=== PATIENT | male | born 1960 | race Caucasian/White ===

== ENCOUNTER → 2017-12-31 | Outpatient (CLI) | payer BC ==
--- NOTE | 2017-12-31 11:54 | RADIOLOGY REPORT (SQ) ---
EXAM DESCRIPTION: U/S THYROID/SFT TISS HD NECK COMPLETED DATE/TIME: 12/31/2017 10:14 am REASON FOR STUDY: R59.0 LOCALIZED ENLARGED LYMPH NODES R59.0 LOCALIZED ENLARGED LYMPH NODES COMPARISON: None. TECHNIQUE: Dynamic and static high-scale images acquired of the thyroid gland. Selected additional c olor/power Doppler images recorded. All images stored to PACS. LIMITATIONS: None. FINDINGS: RIGHT LOBE: Normal size. Heterogeneous echotexture. No cystic or solid masses. LEFT LOBE: Normal size. Heterogeneous echotexture. No cystic or solid masses. ISTHMUS: Normal size. Heterogeneous echotexture. No cystic or solid masses. OTHER: Incidental 9 x 13 mm left submandibular lymph node. IMPRESSION: No thyroid nodule. Small submandibular lymph node. TECHNICAL DOCUMENTATION: JOB ID: [id number] [email or web address]- All Rights Reserved Reading location - IP/workstation name: [email or web address]
== END ==
LOC: RAD 11:44
PROVIDERS: ATTEND Physician Assistant
DX: R59.0 Localized enlarged lymph nodes (principal)
CPT/HCPCS: 76536

== ENCOUNTER 2019-03-21 10:13 | Emergency (ER) | payer BC ==
--- NOTE | 2019-03-21 10:27 | ER Document Report ---
ED Medical Screen (RME) - General Chief Complaint: Leg Swelling Stated Complaint: POSSIBLE BLOOD CLOT Time Seen by Provider: 03/21/19 10:24 Primary Care Provider: RENY BECERRIL PA-C [Primary Care Provider] - Follow up as needed Mode of Arrival: Wheelchair Information source: Patient Notes: 58-year-old male presented to ED for red hot swollen right knee. He just had a hip replacement done on Saturday on the right side. states that the doctor told him to come right to the emergency room and be tested for blood clot. states he had some similar about a year ago after another surgery and it ended up being cellulitis. She states she would like him to be checked for both. Patient is alert oriented respirations regular and unlabored speaking in full sentences. TRAVEL OUTSIDE OF THE [place] IN LAST 30 DAYS: No - Related Data Allergies/Adverse Reactions: No Known Allergies Allergy (Verified 03/21/19 10:13) Past Medical History - Past Medical History Cardiac Medical History: Reports: Hx Hypertension Past Surgical History: Reports: Hx Appendectomy, Hx Orthopedic Surgery - Immunizations Hx Diphtheria, Pertussis, Tetanus Vaccination: Yes Physical Exam - Vital signs Vitals: Temp Pulse Resp BP Pulse Ox 99.6 F 113 H 16 143/69 H 96 03/21/19 10:19 03/21/19 10:19 03/21/19 10:19 03/21/19 10:19 03/21/19 10:19 Course - Vital Signs Vital signs: Temp Pulse Resp BP Pulse Ox 99.6 F 113 H 16 143/69 H 96 03/21/19 10:19 03/21/19 10:19 03/21/19 10:19 03/21/19 10:19 03/21/19 10:19 Doctor's Discharge - Discharge Referrals: RENY BECERRIL PA-C [Primary Care Provider] - Follow up as needed
[2019-03-21 10:56] LABS: ABSOLUTE BASOPHILS # (AUTO) 0.1 10^3/uL (0.0-0.2); ABSOLUTE LYMPHOCYTES (AUTO) 1.6 10^3/uL (0.5-4.7); ABSOLUTE NEUT (AUTO) 8.6 10^3/uL (1.7-8.2); BASOPHILS % (AUTO) 0.6 % (0-2); EOSINOPHILS % (AUTO) 0.4 % (0-6); HEMOGLOBIN 11.9 g/dL (13.5-17.0); LYMPHOCYTES % (AUTO) 14.5 % (13-45); MEAN CORPUSCULAR HEMOGLOBIN 29.8 pg (27.0-33.4); MEAN CORPUSCULAR HGB CONC 33.1 g/dL (32.0-36.0); MEAN CORPUSCULAR VOLUME 90 fl (80-97); MONOCYTES % (AUTO) 8.5 % (3-13); PLATELET COUNT 280 10^3/uL (150-450); RED CELL DISTRIBUTION WIDTH 13.1 % (11.5-14.0); TOTAL CELLS COUNTED % (AUTO) 100 %; WHITE BLOOD COUNT 11.3 10^3/uL (4.0-10.5)
[2019-03-21 11:16] LABS: ALANINE AMINOTRANSFERASE 20 U/L (21-72); ALBUMIN 3.7 g/dL (3.5-5.0); ALKALINE PHOSPHATASE 77 U/L (38-126); ANION GAP 11 (5-19); ASPARTATE AMINO TRANSFERASE 23 U/L (17-59); BILIRUBIN,DIRECT 0.3 mg/dL (0.0-0.4); BILIRUBIN,TOTAL 0.9 mg/dL (0.2-1.3); BLOOD UREA NITROGEN 14 mg/dL (7-20); CALCIUM 9.4 mg/dL (8.4-10.2); CARBON DIOXIDE 28 mmol/L (22-30); CHLORIDE 100 mmol/L (98-107); GLUCOSE 102 mg/dL (75-110); POTASSIUM 4.7 mmol/L (3.6-5.0); SODIUM 138.9 mmol/L (137-145); TOTAL PROTEIN 6.5 g/dL (6.3-8.2)
--- NOTE | 2019-03-21 11:44 | RADIOLOGY REPORT (SQ) ---
EXAM DESCRIPTION: KNEE RIGHT 2 VIEWS COMPLETED DATE/TIME: 03/21/2019 11:34 am REASON FOR STUDY: red hot swollen COMPARISON: None. NUMBER OF VIEWS: Two views. TECHNIQUE: AP and lateral radiographic images acquired of the right knee. LIMITATIONS: None. FINDINGS: MINERALIZATION: Normal. BONES: No acute fracture or dislocation. No worrisome bone lesions. JOINT: No effusion. SOFT TISSUES: No soft tissue swelling. No radio-opaque foreign body. OTHER: Osteoarthritis medial and patellofemoral compartments. IMPRESSION: NO RADIOGRAPHIC EVIDENCE OF ACUTE INJURY. TECHNICAL DOCUMENTATION: JOB ID: [id number]- All Rights Reserved Reading location - IP/workstation name: [email or web address]
--- NOTE | 2019-03-21 11:49 | RADIOLOGY REPORT (SQ) ---
EXAM DESCRIPTION: VENOUS UNILATERAL LOWER COMPLETED DATE/TIME: 03/21/2019 11:39 am REASON FOR STUDY: right leg red swollen painful COMPARISON: None. TECHNIQUE: Dynamic and static high scale and color images acquired of the right leg venous system. S elected spectral images acquired with additional compression and augmentation maneuvers. The contrala teral common femoral vein and saphenofemoral junction were also imaged. Images stored on PACS. LIMITATIONS: None. FINDINGS: COMMON FEMORAL: Normal phasicity, compression and augmentation. No visualized echogenic ma terial on high scale. No defects on color images. FEMORAL: Normal compression and augmentation. No visualized echogenic material on high scale. No defe cts on color images. POPLITEAL: Normal compression, augmentation. No visualized echogenic material on high scale. No defec ts on color images. CALF VESSELS: Normal compression, augmentation. No visualized echogenic material on high scale. No de fects on color images. GSV and SSV: Normal compression, augmentation. No visualized echogenic material on high scale. No def ects on color images. ANY DEEP VENOUS INSUFFICIENCY: Not evaluated. ANY EVIDENCE OF POPLITEAL CYST: No. OTHER: No other significant finding. CONTRALATERAL COMMON FEMORAL VEIN AND SAPHENOFEMORAL JUNCTION: Normal phasicity, compression and augmentation. No visualized echogenic material on high scale. No de fects on color images. IMPRESSION: NO EVIDENCE DVT OR SVT IN THE RIGHT LEG. TECHNICAL DOCUMENTATION: JOB ID: [id number] [employer]- All Rights Reserved Reading location - IP/workstation name: [email or web address]
[2019-03-21] MEDS ORDERED: VANCOMYCIN HCL INJ 1000 MG VIAL IV ONE (12:11)
[2019-03-21] MEDS ORDERED: DIPHENHYDRAMINE HCL 50 MG/ML VIAL IV ONE (12:11)
[2019-03-21] MEDS ORDERED: ONDANSETRON HCL INJ/PF 4 MG/2 ML SDV IV ONE (12:15)
[2019-03-21] MEDS ORDERED: HYDROMORPHONE HCL INJ/PF 2 MG/ML AMPULE IV ONE (12:15)
--- NOTE | 2019-03-21 13:14 | RADIOLOGY REPORT (SQ) ---
EXAM DESCRIPTION: HIP RIGHT AP/LATERAL COMPLETED DATE/TIME: 03/21/2019 12:58 pm REASON FOR STUDY: recent surgery/ cellulitis COMPARISON: None. NUMBER OF VIEWS: Two views. TECHNIQUE: AP pelvis and cross-table lateral view right hip . LIMITATIONS: None. FINDINGS: MINERALIZATION: Normal. RIGHT HIP: Status post right total hip replacement. No periprosthetic fracture. No hardware failure . LEFT HIP: There is degenerative osteophytic change from the superolateral acetabulum on the left and narrowing the left hip joint consistent with degenerative arthritis. PUBIS AND ISCHIUM: No fracture. PELVIS: No fracture. SACRUM: No fracture or dislocation. No worrisome bone lesions. LOWER LUMBAR SPINE: No fracture or dislocation. No worrisome bone lesions. No significant disc disea se. SOFT TISSUES: Mottled appearance of soft tissues anterior to the proximal right femur on cross-table lateral view and AP view. Soft tissue abscess not excluded. OTHER: No other significant finding. IMPRESSION: Degenerative arthritis left hip. Status post total right hip prosthesis There is eviden ce of soft tissue air noted adjacent to the right greater trochanter. The possibility of soft tissue abscess adjacent to the right hip prosthesis cannot be excluded. TECHNICAL DOCUMENTATION: JOB ID: [id number] [employer]- All Rights Reserved Reading location - IP/workstation name: [email or web address]
[2019-03-21] MEDS ORDERED: NORMAL SALINE 1000 ML 1,000 ML IV ONE (13:55)
--- NOTE | 2019-03-21 13:55 | RADIOLOGY REPORT (SQ) ---
EXAM DESCRIPTION: HIP RIGHT AP/LATERAL COMPLETED DATE/TIME: 03/21/2019 1:46 pm REASON FOR STUDY: post op pain redness COMPARISON: Same day radiographs, 03/21/2019 NUMBER OF VIEWS: Two views. TECHNIQUE: AP pelvis and additional frog-leg view of the right hip. LIMITATIONS: None. FINDINGS: MINERALIZATION: Normal. RIGHT HIP: Status post right hip total arthroplasty. LEFT HIP: No fracture or dislocation. No worrisome bone lesions. PUBIS AND ISCHIUM: No fracture. PELVIS: No fracture. SACRUM: No fracture or dislocation. No worrisome bone lesions. LOWER LUMBAR SPINE: No fracture or dislocation. No worrisome bone lesions. No significant disc disea se. SOFT TISSUES: Subcutaneous air lucencies about the anterolateral right hip soft tissues overlying the right greater trochanter. OTHER: No other significant finding. IMPRESSION: Status post right hip total arthroplasty. No fracture or dislocation. Subcutaneous air lucencies about the anterolateral right hip soft tissues overlying the right greater trochanter. The re is no significant interval change compared to radiographs performed 1 hour prior. TECHNICAL DOCUMENTATION: JOB ID: [id number] [employer]- All Rights Reserved Reading location - IP/workstation name: [email or web address]
--- NOTE | 2019-03-21 13:56 | ER Document Report ---
ED General <GULSHAN COLBY - Last Filed: 03/21/19 15:39> - General Mode of Arrival: Wheelchair Information source: Patient, Relative, [facility] Records TRAVEL OUTSIDE OF THE [place] IN LAST 30 DAYS: No - HPI Onset: This morning Onset/Duration: Sudden Quality of pain: Achy, Throbbing Severity: Moderate Pain Level: 2 Associated symptoms: denies: Body/muscle aches, Chills, Fever, Nausea, Vomiting, Shortness of breath Exacerbated by: Movement Relieved by: Denies Similar symptoms previously: No Recently seen / treated by doctor: Yes <ANUPAMA TANNER - Last Filed: 03/22/19 06:23> - General Chief Complaint: Leg Swelling Stated Complaint: POSSIBLE BLOOD CLOT Time Seen by Provider: 03/21/19 10:24 Primary Care Provider: RENY BECERRIL PA-C [NO LOCAL MD] - Follow up as needed Notes: 58-year-old male with hypertension status post total right hip replacement 4 days prior to arrival presents with complaint of right lower extremity swelling, erythema and pain. Patient states that he awoke this morning with diffuse redness of his right lower extremity. He did touch base with his orthopedic surgeon who encouraged him to come to the emergency department for evaluation. Patient denies fever, chills, nausea, vomiting, shortness of breath, palpitations, chest pain. He denies prior history of PE, DVT. (ANUPAMA TANNER) - Related Data Allergies/Adverse Reactions: No Known Allergies Allergy (Verified 03/21/19 10:13) Past Medical History - General Information source: Patient - Social History Smoking Status: Former Smoker Frequency of alcohol use: None Drug Abuse: None Lives with: Spouse/Significant other Family History: Reviewed & Not Pertinent Patient has suicidal ideation: No Patient has homicidal ideation: No - Past Medical History Cardiac Medical History: Reports: Hx Hypertension Renal/ Medical History: Denies: Hx Peritoneal Dialysis Past Surgical History: Reports: Hx Appendectomy, Hx Orthopedic Surgery - Immunizations Hx Diphtheria, Pertussis, Tetanus Vaccination: Yes <ANUPAMA TANNER - Last Filed: 03/22/19 06:23> Review of Systems <ANUPAMA TANNER - Last Filed: 03/22/19 06:23> - Review of Systems Notes: REVIEW OF SYSTEMS: CONSTITUTIONAL : Denies fever, chills, or sweats. Denies recent illness. Denies weight loss, recent hospitalizations. EENT: Denies visual changes, eye pain. Denies sore throat, oral lesions, difficulty swallowing. CARDIOVASCULAR: Denies chest pain. Denies palpitations. Denies lower extremity edema. RESPIRATORY: Denies cough. Denies shortness of breath, wheezing. GASTROINTESTINAL: Denies abdominal pain or distention. Denies nausea, vomiting, or diarrhea. Denies blood in vomitus, stools, or per rectum. Denies black, tarry stools. Denies constipation. GENITOURINARY: Denies difficulty urinating, painful urination, frequency, blood in urine, testicular pain or penile discharge. MUSCULOSKELETAL: Denies back or neck pain or stiffness. Denies joint pain or swelling. SKIN: Denies rash, lesions or sores. HEMATOLOGIC : Denies easy bruising or bleeding. LYMPHATIC: Denies swollen glands. NEUROLOGICAL: Denies confusion or altered mental status. Denies loss of consciousness. Denies dizziness or lightheadedness. Denies headache. Denies weakness or paralysis. Denies problems difficulty with ambulation, slurred speech. Denies sensory loss, numbness, or tingling. Denies seizures. PSYCHIATRIC: Denies anxiety or stress. Denies depression, suicidal ideation, or (ANUPAMA TANNER) Physical Exam <ANUPAMA TANNER - Last Filed: 03/22/19 06:23> - Vital signs Vitals: Temp Pulse Resp BP Pulse Ox 99.6 F 113 H 16 143/69 H 96 03/21/19 10:19 03/21/19 10:19 03/21/19 10:19 03/21/19 10:19 03/21/19 10:19 - Notes Notes: PHYSICAL EXAMINATION: GENERAL: Well-appearing, well-nourished and in no acute distress. HEAD: Atraumatic, normocephalic. EYES: Pupils equal round and reactive to light, extraocular movements intact, sclera anicteric, conjunctiva are normal. ENT: Nares patent, oropharynx clear without exudates. Moist mucous membranes. NECK: Normal range of motion, supple without lymphadenopathy LUNGS: Breath sounds clear to auscultation bilaterally and equal. No wheezes rales or rhonchi. HEART: Regular rate and rhythm without murmurs ABDOMEN: Soft, nontender, nondistended abdomen. No guarding, no rebound. No masses appreciated. Musculoskeletal: Normal range of motion, no pitting or edema. No cyanosis. Right knee-edematous, erythematous, warm. No calf pain with palpation. Right hip -8 cm surgical incision with skin blistering, intact, erythematous. NEUROLOGICAL: Cranial nerves grossly intact. Normal speech, normal gait. Normal sensory, motor exams PSYCH: Normal mood, normal affect. SKIN: Right knee-edematous, erythematous, warm. No calf pain with palpation. Right hip -8 cm surgical incision with skin blistering, intact, erythematous. (ANUPAMA TANNER) Course - Laboratory Result Diagrams: 03/21/19 10:32 03/21/19 10:32 <GULSHAN COLBY - Last Filed: 03/21/19 15:39> - Laboratory Result Diagrams: 03/21/19 10:32 03/21/19 10:32 - Diagnostic Test Radiology reviewed: Image reviewed, Reports reviewed <ANUPAMA TANNER - Last Filed: 03/22/19 06:23> - Re-evaluation Re-evalutation: 03/21/19 15:44 CT scan results were reviewed I did recontact violent stating that they are seen the CT scan patient was given 1 dose of vancomycin will stop this and give the patient a dose of Rocephin patient will be given prescriptions as documented and will be discharged (GULSHAN COLBY) 03/21/19 14:23 Laboratory 03/21/19 03/21/19 10:32 10:32 WBC 11.3 H RBC 4.00 L Hgb 11.9 L Hct 36.0 L MCV 90 MCH 29.8 MCHC 33.1 RDW 13.1 Plt Count 280 Seg Neutrophils % 76.0 Lymphocytes % 14.5 Monocytes % 8.5 Eosinophils % 0.4 Basophils % 0.6 Absolute Neutrophils 8.6 H Absolute Lymphocytes 1.6 Absolute Monocytes 1.0 Absolute Eosinophils 0.0 Absolute Basophils 0.1 Sodium 138.9 Potassium 4.7 Chloride 100 Carbon Dioxide 28 Anion Gap 11 BUN 14 Creatinine 0.55 Est GFR ( Amer) > 60 Est GFR (Non-Af Amer) > 60 Glucose 102 Uric Acid 4.0 Calcium 9.4 Total Bilirubin 0.9 Direct Bilirubin 0.3 Neonat Total Bilirubin Not Reportable Neonat Direct Bilirubin Not Reportable Neonat Indirect Bili Not Reportable AST 23 ALT 20 L Alkaline Phosphatase 77 Total Protein 6.5 Albumin 3.7 Venous Doppler Study 03/21/19 10:24 IMPRESSION: NO EVIDENCE DVT OR SVT IN THE RIGHT LEG. Knee X-Ray 03/21/19 10:26 IMPRESSION: NO RADIOGRAPHIC EVIDENCE OF ACUTE INJURY. Hip/Pelvis X-Ray 03/21/19 13:17 IMPRESSION: Status post right hip total arthroplasty. No fracture or dislocation. Subcutaneous air lucencies about the anterolateral right hip soft tissues overlying the right greater trochanter. There is no significant interval change compared to radiographs performed 1 hour prior. Temp Pulse Resp BP Pulse Ox 99.6 F 113 H 16 143/69 H 96 03/21/19 10:19 03/21/19 10:19 03/21/19 10:19 03/21/19 10:03/21/19 10:19 Venous Doppler Study 03/21/19 10:24 IMPRESSION: NO EVIDENCE DVT OR SVT IN THE RIGHT LEG. Knee X-Ray 03/21/19 10:26 IMPRESSION: NO RADIOGRAPHIC EVIDENCE OF ACUTE INJURY. Hip/Pelvis X-Ray 03/21/19 13:17 IMPRESSION: Status post right hip total arthroplasty. No fracture or dislocation. Subcutaneous air lucencies about the anterolateral right hip soft tissues overlying the right greater trochanter. There is no significant interval change compared to radiographs performed 1 [address] Ext[address] 03/21/19 13:45 IMPRESSION: The patient is status post right hip total arthroplasty. There is soft tissue stranding about the right hip and scattered gas lucency about the anterolateral right hip overlying the right greater trochanter. There is no discrete fluid collection identified within the limitations of metallic streak artifact. Date of hip replacement is reported on technologist documentation as 03/18/2019, favoring expected postoperative subcutaneous emphysema. Infection is not excluded by imaging and further evaluation should be driven by clinical concern and clinical examination. 58-year-old male presents status post right hip replacement postop day 3. Maria T ent had surgery with Dr.'s Lu at [facility] on Monday, March 18, 2019. Patient states that he awoke this morning with redness, swelling and warmth to his right knee. He states redness progressively worsened. He did speak to his orthopedic surgeon who recommended that the patient be seen in the emergency department. Venous Doppler to assess for DVT was obtained and negative. X-ray of the right knee showed no evidence of acute injury. X-ray of the right hip showed subcutaneous air lucencies to the anterior lateral right hip overlying the greater trochanter. Patient was started on vancomycin. 03/21/19 14:26 Awaiting callback from orthopedic surgery at [facility]. Lactic acid, CRP ESR added and pending. 03/21/19 14:[address] Luis Armando Cross covering for Dr. Lu who recommends Keflex as an outpatient and follow-up on Saturday. 03/22/19 06:21 Patient was evaluated and treated as appropriate for the patient's presenting symptoms and complaint, with consideration of any critical or life threatening conditions that may be associated with their obtained history and exam as noted above. All results were discussed with patient and his who is at the [facility]. Patient provided the opportunity to ask questions, and express concerns. Patient was educated on treatments based on their presumed diagnosis as noted above. At this time we will discharge the patient with return precautions and follow-up recommendations. Verbal discharge instructions given a the bedside. Medication warnings reviewed. Patient is in agreement with this plan and has verbalized understanding of return precautions. After careful consideration I feel that that patient can be safely discharged from the emergency department, they were advised to followup with a primary care physician in 2-3 days. Dictation on this chart was performed using voice recognition software and may result in unintended grammatical, spelling, syntax or errors. (ANUPAMA TANNER) - Vital Signs Vital signs: Temp Pulse Resp BP Pulse Ox 99.4 F 109 H 18 146/72 H 99 03/21/19 15:57 03/21/19 15:57 03/21/19 15:57 03/21/19 15:57 03/21/19 15:57 - Laboratory Laboratory results interpreted by in: 03/21/19 03/21/19 03/21/19 10:32 10:32 13:55 WBC 11.3 H RBC 4.00 L Hgb 11.9 L Hct 36.0 L Absolute Neutrophils 8.6 H ESR ALT 20 L C-Reactive Protein 205.1 H 03/21/19 13:55 WBC RBC Hgb Hct Absolute Neutrophils ESR 96 H ALT C-Reactive Protein Discharge <GULSHAN COLBY - Last Filed: 03/21/19 15:39> <TANNERANUPAMALUIS MANUEL - Last Filed: 03/22/19 06:23> - Discharge Clinical Impression: Cellulitis of right lower extremity, Status post total hip replacement, right, Tachycardia Condition: Good Disposition: HOME, SELF-CARE Instructions: Cellulitis ([facility]) Prescriptions: RX: Cephalexin Monohydrate [Keflex 500 mg Capsule] 500 mg PO TID 7 Days #21 capsule Forms: Elevated Blood Pressure Referrals: RENY BECERRIL PA-C [NO LOCAL MD] - Follow up as needed
--- NOTE | 2019-03-21 15:10 | RADIOLOGY REPORT (SQ) ---
EXAM DESCRIPTION: CT RT LOWER EXTREMITY WITH COMPLETED DATE/TIME: 03/21/2019 2:44 pm REASON FOR STUDY: concern for abscess COMPARISON: Same day radiographs TECHNIQUE: CT scan of the right hip performed with 100 mL Omnipaque 350 iodinated contrast IV Images reviewed with soft tissue and bone windows. Reconstructed coronal and sagittal MPR images reviewed. All images stored on PACS. All CT scanners at this facility use dose modulation, iterative reconstruction, and/or weight based d osing when appropriate to reduce radiation dose to as low as reasonably achievable (ALARA). [facility]: Dose Right [facility]: CareDose [facility]: Dose Right [facility]: Teradose 4D [facility]: [employer] RADIATION DOSE: CT Rad equipment meets quality standard of care and radiation dose reduction techniq ues were employed. CTDIvol: 4.2 - 106.3 mGy. DLP: 534 mGy-cm. mGy. LIMITATIONS: Streak artifact status post right hip total arthroplasty. FINDINGS: PELVIC BONES: No acute fracture. No worrisome bone lesions. VISUALIZED SPINE: No acute findings. RIGHT HIP: No acute fracture or dislocation. No worrisome bone lesions. PELVIC SOFT TISSUES: No significant findings. EXTRAPELVIC SOFT TISSUES: There is soft tissue stranding about the right hip and scattered gas lucenc y about the anterolateral right hip overlying the right greater trochanter. There is no discrete flu id collection identified. OTHER: No other significant finding. IMPRESSION: The patient is status post right hip total arthroplasty. There is soft tissue stranding about the right hip and scattered gas lucency about the anterolateral right hip overlying the right g reater trochanter. There is no discrete fluid collection identified within the limitations of metall ic streak artifact. Date of hip replacement is reported on technologist documentation as 03/18/2019, favoring expected postoperative subcutaneous emphysema. Infection is not excluded by imaging and fur ther evaluation should be driven by clinical concern and clinical examination. TECHNICAL DOCUMENTATION: JOB ID: [id number] Quality ID # [id number]: Final reports with documentation of one or more dose reduction techniques (e.g., Au tomated exposure control, adjustment of the mA and/or kV according to patient size, use of iterative reconstruction technique) 2010 [employer]- All Rights Reserved Reading location - IP/workstation name: [email or web address]
[2019-03-21 15:13] LABS: C-REACTIVE PROTEIN 205.1 mg/L (<10.0)
[2019-03-21] MEDS ORDERED: CEFTRIAXONE 1 GM/D5W RTU 1 GM/50 ML RTUPB IV ONE (15:43)
[2019-03-21] MEDS ORDERED: CEFTRIAXONE INJ 1000 MG VIAL IM ONE (16:07)
[2019-03-21] MEDS ORDERED: LIDOCAINE 1% INJ (10 MG/ML) 10 ML MDV INJ ONE (16:08)
[2019-03-21 16:30] VITALS: BP 146/72
== END 2019-03-21 16:30 | disposition home or self-care (01) ==
LOC: ER 10:13
DX: L03.115 Cellulitis of right lower limb (principal); R00.0 Tachycardia, unspecified; Z96.641 Presence of right artificial hip joint; M79.89 Other specified soft tissue disorders; I10 Essential (primary) hypertension; Z87.891 Personal history of nicotine dependence
CPT/HCPCS: 36415; 87040; 84550; 85025; 85652; 86140; 80053; 83605; 93971; 73502; 73560; 73701; J1200; J1170; J0696; J2405; J7030; J3370

== ENCOUNTER → 2019-09-04 | Outpatient (CLI) | payer BC ==
[2019-09-04 10:50] LABS: ABSOLUTE BASOPHILS # (AUTO) 0.1 10^3/uL (0.0-0.2); ABSOLUTE MONOCYTES (AUTO) 0.5 10^3/uL (0.1-1.4); ABSOLUTE NEUT (AUTO) 5.4 10^3/uL (1.7-8.2); BASOPHILS % (AUTO) 0.8 % (0-2); EOSINOPHILS % (AUTO) 0.6 % (0-6); HEMATOCRIT 41.7 % (37.9-51.0); HEMOGLOBIN 13.9 g/dL (13.5-17.0); MEAN CORPUSCULAR HEMOGLOBIN 29.4 pg (27.0-33.4); MEAN CORPUSCULAR HGB CONC 33.5 g/dL (32.0-36.0); MEAN CORPUSCULAR VOLUME 88 fl (80-97); MONOCYTES % (AUTO) 6.7 % (3-13); PLATELET COUNT 252 10^3/uL (150-450); RED BLOOD COUNT 4.74 10^6/uL (4.35-5.55); RED CELL DISTRIBUTION WIDTH 14.4 % (11.5-14.0); SEGMENTED NEUTROPHILS % (AUTO) 66.9 % (42-78); TOTAL CELLS COUNTED % (AUTO) 100 %; WHITE BLOOD COUNT 8.1 10^3/uL (4.0-10.5)
[2019-09-04 11:13] LABS: ALBUMIN 4.4 g/dL (3.5-5.0); ALKALINE PHOSPHATASE 92 U/L (38-126); ANION GAP 10 (5-19); ASPARTATE AMINO TRANSFERASE 18 U/L (17-59); BILIRUBIN,TOTAL 0.5 mg/dL (0.2-1.3); BLOOD UREA NITROGEN 23 mg/dL (7-20); C-REACTIVE PROTEIN 8.9 mg/L (<10.0); CALCIUM 9.9 mg/dL (8.4-10.2); CARBON DIOXIDE 26 mmol/L (22-30); CHLORIDE 105 mmol/L (98-107); GLUCOSE 94 mg/dL (75-110); POTASSIUM 4.6 mmol/L (3.6-5.0); TOTAL PROTEIN 7.7 g/dL (6.3-8.2)
[2019-09-04 11:38] LABS: ERYTHROCYTE SEDIMENTATION RATE 26 mm/hr (0-20)
== END ==
LOC: OD 09:34
PROVIDERS: ATTEND Orthopaedic Surgery
DX: L03.90 Cellulitis, unspecified (principal)
CPT/HCPCS: 36415; 80053; 85025; 85652; 86140; 87040

== ENCOUNTER → 2019-09-16 | Outpatient (CLI) | payer BC ==
--- NOTE | 2019-09-16 16:18 | RADIOLOGY REPORT (SQ) ---
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 The route of agent administration: Intravenous. ADDITIONAL DRUGS AND DOSES: None. TECHNIQUE: Following injection of the radiopharmaceutical, serial blood flow images acquired. Equil ibrium blood pool images then acquired. Routine delayed images at 3 hours acquired of the areas of c linical concern with additional focused images as needed. AREA OF INTEREST: Right hip LIMITATIONS: None. FINDINGS: VASCULAR FLOW IMAGES: No asymmetry or focal areas of hyperemia. BLOOD POOL IMAGES: No asymmetry or focal areas of soft-tissue hyper-perfusion. BONES: On the delayed images of the pelvis, there is diffuse increased uptake along the right proxima l femoral metaphysis and diaphysis along the right femoral component of the hip prosthesis. This may indicate loosening of the prosthesis. There is no increased uptake along the right acetabulum or right hemipelvis. Left proximal femur, le ft hemipelvis, sacrum unremarkable. OTHER: No other significant finding. IMPRESSION: Increased uptake on the delayed images only, paralleling the femoral component of a righ t hip replacement. This is worrisome for loosening of the prosthesis COMMENT: Quality measure 147: Current bone scan is compared with any available plain radiographs, p rior bone scans, and CT/MRI. TECHNICAL DOCUMENTATION: JOB ID: [id number] [employer]- All Rights Reserved Reading location - IP/workstation name: [email or web address]
== END ==
LOC: RAD 11:06
PROVIDERS: ATTEND Orthopaedic Surgery
DX: M25.551 Pain in right hip (principal); Z96.649 Presence of unspecified artificial hip joint
CPT/HCPCS: 78315; A9561; Q9969

== ENCOUNTER → 2019-09-29 | Outpatient (CLI) | payer BC ==
--- NOTE | 2019-09-29 09:06 | RADIOLOGY REPORT (SQ) ---
EXAM DESCRIPTION: CHEST PA/LATERAL COMPLETED DATE/TIME: 09/29/2019 8:50 am REASON FOR STUDY: PRE-OP COMPARISON: 06/04/2013 EXAM PARAMETERS: NUMBER OF VIEWS: two views TECHNIQUE: Digital Frontal and Lateral radiographic views of the chest acquired. RADIATION DOSE: NA LIMITATIONS: none FINDINGS: LUNGS AND PLEURA: No opacities, masses or pneumothorax. No pleural effusion. MEDIASTINUM AND HILAR STRUCTURES: No masses or contour abnormalities. HEART AND VASCULAR STRUCTURES: Heart normal size. No evidence for failure. BONES: No acute findings. HARDWARE: None in the chest. OTHER: No other significant finding. IMPRESSION: NO SIGNIFICANT RADIOGRAPHIC FINDING IN THE CHEST. TECHNICAL DOCUMENTATION: JOB ID: [id number] [employer]- All Rights Reserved Reading location - IP/workstation name: [email or web address]
[2019-09-29 09:24] LABS: ABSOLUTE EOSINOPHILS # (AUTO) 0.1 10^3/uL (0.0-0.6); ABSOLUTE LYMPHOCYTES (AUTO) 2.1 10^3/uL (0.5-4.7); ABSOLUTE MONOCYTES (AUTO) 0.6 10^3/uL (0.1-1.4); ABSOLUTE NEUT (AUTO) 4.6 10^3/uL (1.7-8.2); BASOPHILS % (AUTO) 0.6 % (0-2); EOSINOPHILS % (AUTO) 0.8 % (0-6); HEMOGLOBIN 14.3 g/dL (13.5-17.0); LYMPHOCYTES % (AUTO) 28.4 % (13-45); MEAN CORPUSCULAR HEMOGLOBIN 29.6 pg (27.0-33.4); MEAN CORPUSCULAR HGB CONC 33.4 g/dL (32.0-36.0); MEAN CORPUSCULAR VOLUME 89 fl (80-97); MONOCYTES % (AUTO) 7.8 % (3-13); PLATELET COUNT 255 10^3/uL (150-450); RED BLOOD COUNT 4.84 10^6/uL (4.35-5.55); RED CELL DISTRIBUTION WIDTH 13.9 % (11.5-14.0); SEGMENTED NEUTROPHILS % (AUTO) 62.4 % (42-78); TOTAL CELLS COUNTED % (AUTO) 100 %; WHITE BLOOD COUNT 7.4 10^3/uL (4.0-10.5)
[2019-09-29 09:30] LABS: APPEARANCE,URINE CLEAR; BILIRUBIN,URINE NEGATIVE (NEGATIVE); COLOR,URINE YELLOW; GLUCOSE, URINE NEGATIVE (NEGATIVE); KETONES,URINE NEGATIVE (NEGATIVE); LEUKOCYTE ESTERASE,URINE TRACE (NEGATIVE); NITRITE,URINE NEGATIVE (NEGATIVE); PROTEIN,URINE NEGATIVE (NEGATIVE); UROBILINOGEN,URINE NEGATIVE mg/dL (<2.0)
[2019-09-29 10:04] LABS: ANION GAP 10 (5-19); BLOOD UREA NITROGEN 17 mg/dL (7-20); CALCIUM 10.2 mg/dL (8.4-10.2); CARBON DIOXIDE 30 mmol/L (22-30); CHLORIDE 102 mmol/L (98-107); GLUCOSE 92 mg/dL (75-110); POTASSIUM 4.8 mmol/L (3.6-5.0)
--- NOTE | 2019-09-29 14:31 | EKG REPORT ---
SEVERITY:- ABNORMAL ECG - SINUS RHYTHM RIGHT BUNDLE BRANCH BLOCK : Confirmed by: Ashleigh Forte MD 29-Sep-2019 14:29:57
== END ==
LOC: OD 08:10
PROVIDERS: ATTEND Orthopaedic Surgery
DX: Z01.810 Encounter for preprocedural cardiovascular examination (principal); Z01.811 Encounter for preprocedural respiratory examination; Z01.812 Encounter for preprocedural laboratory examination; M25.551 Pain in right hip; I10 Essential (primary) hypertension
CPT/HCPCS: 36415; 71046; 80048; 81001; 85025; 93005; 93010

== ENCOUNTER → 2019-10-05 | Outpatient (CLI) | payer BC | LOC: OD 11:15 | PROVIDERS: ATTEND Orthopaedic Surgery | DX: E55.9 Vitamin D deficiency, unspecified (principal); M25.552 Pain in left hip | CPT/HCPCS: 36415; 82306 ==

== ENCOUNTER 2019-12-14 22:34 | Inpatient (IN) | payer BC ==
--- NOTE | 2019-12-14 23:57 | RADIOLOGY REPORT (SQ) ---
CLINICAL HISTORY: pain COMPARISON: None. 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 Total right hip arthroplasty was performed. There is mild to moderate left hip degenerative narrowing. Soft tissues are unremarkable. IMPRESSION: Questionable left upper pubic arch fracture.
[2019-12-15] MEDS ORDERED: HYDROMORPHONE HCL INJ/PF 2 MG/ML AMPULE IV ONE ×4 (00:19→09:15)
[2019-12-15] MEDS ORDERED: NORMAL SALINE 500 ML IV ONE ×2 (00:20→03:09)
--- NOTE | 2019-12-15 01:46 | RADIOLOGY REPORT (SQ) ---
CLINICAL HISTORY: hip pain COMPARISON: None. TECHNIQUE: CT PELVIS WITHOUT IV CONTRAST on 12/15/2019 12:18 AM OPTIMIZATION MANAGER This exam was performed according to our departmental dose-optimization program, which includes automated exposure control, adjustment of the mA and/or kV according to patient size and/or use of iterative reconstruction technique. FINDINGS: There is moderate diffuse colonic diverticulosis. Urinary bladder is unremarkable. There is no free fluid. Appendix is not clearly seen. Skeleton: There are no acute osseous findings. No suspicious bony lesions. Right hip arthroplasty was performed. IMPRESSION: No definite acute fracture.
--- NOTE | 2019-12-15 05:12 | ER Document Report ---
Entered by HYACINTH BAR SCRIBE 12/15/19 0010 Acting as scribe for:CAROLINE GANNON MD ED General - General Chief Complaint: Hip Pain Stated Complaint: HIP PAIN Time Seen by Provider: 12/14/19 23:18 Primary Care Provider: CHRIS SHAY MD [Primary Care Provider] - Follow up as needed Information source: Patient, Relative Notes: 59-year-old male presents to the emergency department for hip pain that is 10/10 severity and is radiating down to his knee. Patient describes the pain as tremendously painful to move and "feels like my leg is falling off" when getting up. Patient's reports that he has been in tears three times in the last few hours. Patient mentions that he had a hip replacement February of last year and at the end of March he was walking fine. Patient says that he was injured in physical therapy. After implant revision, patient said he was doing better August 2019-September 2019. Patient reported stopping physical therapy due to pain increasing in hip. Patient denies trouble urinating. TRAVEL OUTSIDE OF THE [place] IN LAST 30 DAYS: No - Related Data Allergies/Adverse Reactions: No Known Allergies Allergy (Verified 10/05/19 12:47) Past Medical History - General Information source: Patient, Relative - Social History Smoking Status: Never Smoker Cigarette use (# per day): No Chew tobacco use (# tins/day): No Drug Abuse: None Lives with: Spouse/Significant other Family History: Reviewed & Not Pertinent Patient has suicidal ideation: No Patient has homicidal ideation: No - Past Medical History Cardiac Medical History: Reports: Hx Hypertension Past Surgical History: Reports: Hx Appendectomy, Hx Orthopedic Surgery - Immunizations Hx Diphtheria, Pertussis, Tetanus Vaccination: Yes Review of Systems - Review of Systems Constitutional: No symptoms reported EENT: No symptoms reported Cardiovascular: No symptoms reported Respiratory: No symptoms reported Gastrointestinal: No symptoms reported Genitourinary: See HPI. denies: Dysuria, Retention Male Genitourinary: No symptoms reported Musculoskeletal: See HPI, Joint pain - Right hip Skin: No symptoms reported Hematologic/Lymphatic: No symptoms reported Neurological/Psychological: No symptoms reported -: Yes All other systems reviewed and negative Physical Exam - Vital signs Vitals: Temp Pulse Resp BP Pulse Ox 98.5 F 76 16 184/83 H 97 12/14/19 22:50 12/14/19 22:50 12/14/19 22:50 12/14/19 22:50 12/14/19 22:50 - Notes Notes: Physical Exam: General: Alert, appears uncomfortable. HEENT: Normocephalic. Atraumatic. PERRL. Extraocular movements intact. Oropharynx clear. Neck: Supple. Non-tender. Respiratory: No respiratory distress. Clear and equal breath sounds bilaterally. Cardiovascular: Regular rate and rhythm. Abdominal: Normal Inspection. Non-tender. No distension. Normal Bowel Sounds. Back: No gross abnormalities. Extremities: Upper extremities: Normal inspection. Normal ROM. Lower extremities: No edema. Extreme pain with moving RLE. Neurological: Normal cognition. AAOx4. Normal speech. Psychological: Normal affect. Normal Mood. Skin: Warm. Dry. Normal color. Course - Re-evaluation Re-evalutation: 12/15/19 03:12 Patient continues to complain of pain in his right hip that radiates down to his knee. Denies any relief from receiving IV Dilaudid. At their insistence he and his spoke to Dr. Dennis moreira manager front office orthopedics for Dr. Mera who is their primary orthopedic doctor. is not available at this time Dr. Kearney suggested that we maintain patient in the ED and at 6:00 this a.m. get in touch with Dr. Mera to combine visit patient in the emergency department and make a disposition decision as to regarding this treatment plan. - Vital Signs Vital signs: Temp Pulse Resp BP Pulse Ox 98.5 F 76 16 184/83 H 97 12/14/19 22:50 12/14/19 22:50 12/14/19 22:50 12/14/19 22:50 12/14/19 22:50 - Diagnostic Test Radiology reviewed: Image reviewed, Reports reviewed Radiology results interpreted by me: 12/15/19 03:13 Plain film x-ray of pelvis disclose a questionable fracture of the left pubic arch.. CT scan of pelvis did not disclose any acute fracture present arthroplasty noted in the right hip. 12/15/19 03:14 Discharge - Discharge Clinical Impression: Chronic right hip pain Condition: Fair Disposition: HOME, SELF-CARE Additional Instructions: Leg Pain, Nonspecific We did not find an obvious cause for your leg pain. There's no sign of blood clot, infection, or other serious disease. Possible causes of vague leg pain include muscle or joint inflammation, disc disease in the lower back, pressure on the nerves in the back, or reduced blood flow through the arteries of the leg. Rest the leg. Pain can be eased with an antiinflammatory pain medicine such as ibuprofen. If the pain involves a small area, a heating pad might help. Call the doctor or return if the leg becomes swollen, weak, discolored, or increasingly painful, or if you develop any other significant change in your health. You have placed on Percocet as needed for pain and request follow-up with Dr. Mera. Prescriptions: Oxycodone HCl/Acetaminophen [Percocet 5-325 mg Tablet] 1 - 2 tab PO Q4H PRN #15 tablet PRN Reason: Referrals: CHRIS SHAY MD [Primary Care Provider] - Follow up as needed I personally performed the services described in the documentation, reviewed and edited the documentation which was dictated to the scribe in my presence, and it accurately records my words and actions.
[2019-12-15 07:06] LABS: ABSOLUTE BASOPHILS # (AUTO) 0.1 10^3/uL (0.0-0.2); ABSOLUTE LYMPHOCYTES (AUTO) 2.1 10^3/uL (0.5-4.7); ABSOLUTE NEUT (AUTO) 7.9 10^3/uL (1.7-8.2); BASOPHILS % (AUTO) 0.6 % (0-2); EOSINOPHILS % (AUTO) 0.3 % (0-6); HEMATOCRIT 40.7 % (37.9-51.0); HEMOGLOBIN 13.5 g/dL (13.5-17.0); LYMPHOCYTES % (AUTO) 18.8 % (13-45); MEAN CORPUSCULAR HEMOGLOBIN 29.1 pg (27.0-33.4); MEAN CORPUSCULAR HGB CONC 33.2 g/dL (32.0-36.0); MEAN CORPUSCULAR VOLUME 88 fl (80-97); MONOCYTES % (AUTO) 8.7 % (3-13); PLATELET COUNT 272 10^3/uL (150-450); RED BLOOD COUNT 4.63 10^6/uL (4.35-5.55); RED CELL DISTRIBUTION WIDTH 13.4 % (11.5-14.0); SEGMENTED NEUTROPHILS % (AUTO) 71.6 % (42-78); TOTAL CELLS COUNTED % (AUTO) 100 %
[2019-12-15 07:19] LABS: ALBUMIN 3.8 g/dL (3.5-5.0); ALKALINE PHOSPHATASE 99 U/L (38-126); ANION GAP 5 (5-19); ASPARTATE AMINO TRANSFERASE 23 U/L (17-59); BILIRUBIN,TOTAL 0.3 mg/dL (0.2-1.3); BLOOD UREA NITROGEN 16 mg/dL (7-20); CALCIUM 9.2 mg/dL (8.4-10.2); CARBON DIOXIDE 30 mmol/L (22-30); CHLORIDE 104 mmol/L (98-107); GLUCOSE 113 mg/dL (75-110); POTASSIUM 4.6 mmol/L (3.6-5.0); TOTAL PROTEIN 6.8 g/dL (6.3-8.2)
--- NOTE | 2019-12-15 08:34 | ER Document Report ---
Doctor's Note Notes: 12/15/19 08:32 I assumed care of the patient proximally [address] Lewis. I just reexamined the patient at approximately 8:15 AM. At this time patient states he is having extreme right hip pain and is unable to bear weight. He states he does not feel like he could be discharged. I called and discussed the patient w douglas Mera. He is going to admit the patient. He asked me to discuss with interventional radiology about aspirating the hip as well as injecting the hip with Marcaine and Kenalog. I did discuss this with Dr. Pimentel from radiology. She agreed to do the procedure. Instead she would take care of it. I have informed Dr. Mera that this is been arranged. I have also informed the patient that he will be admitted. On my examination of the hip. I do not see anything that appears to be infectious. There is no crepitus. There is no erythema or induration. Patient is not diabetic. There is no increased temperature about the hip.
[2019-12-15 09:13] LABS: APPEARANCE,URINE CLEAR; BILIRUBIN,URINE NEGATIVE (NEGATIVE); COLOR,URINE YELLOW; GLUCOSE, URINE NEGATIVE (NEGATIVE); KETONES,URINE NEGATIVE (NEGATIVE); LEUKOCYTE ESTERASE,URINE NEGATIVE (NEGATIVE); NITRITE,URINE NEGATIVE (NEGATIVE); PROTEIN,URINE NEGATIVE (NEGATIVE); UROBILINOGEN,URINE NEGATIVE mg/dL (<2.0)
[2019-12-15] MEDS ORDERED: METHYLPREDNISOLONE ACETATE INJ 80 MG/1 ML VIAL ONE (12:52)
[2019-12-15] MEDS ORDERED: BUPIVACAINE HCL 0.5 % INJ/PF 30 ML SDV ONE (12:52)
[2019-12-15] MEDS ORDERED: ONDANSETRON 4 MG TAB.RAPDIS PO PRN (13:10)
--- NOTE | 2019-12-15 14:29 | RADIOLOGY REPORT (SQ) ---
EXAM DESCRIPTION: INJECT/ASPIR HIP/SHLDR/KNEE; FLUORO/NEEDLE PLACEMENT COMPLETED DATE/TIME: 12/15/2019 2:08 pm REASON FOR STUDY: RIGHT HIP PAIN; HIP PAIN COMPARISON: CT pelvis 12/15/2019, 03/21/2019 Right hip films 12/14/2019 Bone scan 09/16/2019 FLUOROSCOPY TIME: 44 seconds 2 digital fluoroscopic images saved to PACS. LIMITATIONS: None. PROCEDURE: SITE OF INJECTION: Right hip LOCALIZING CONTRAST TYPE AND DOSE: 1 mL Omnipaque 300 MEDICATION TYPE AND DOSE: 5 mL of 0.5% bupivacaine Using local anesthesia and sterile technique with fluoroscopic guidance, the needle was advanced into the joint. Iodinated contrast was injected to verify intraarticular placement. Injection of contras t into the right hip joint was very painful. 0.5 mL demonstrated contrast tracking along the neck of the femoral prosthesis. At this point, 5 mL of preservative-free sterile saline was infused into th e joint space with 5 mL aspirated, sent for Gram stain culture and sensitivity. This was followed by therapeutic injection of 5 mL of 0.5% bupivacaine. Steroid injection was deferred until after cultu res are complete. The needle was removed. There were no immediate complications. IMPRESSION: DIAGNOSTIC JOINT SPACE ASPIRATION, WITH INJECTION OF 0.5% BUPIVACAINE INTO THE RIGHT HIP JOINT ABOVE. COMMENT: Patient medication list reviewed: Yes- Quality ID# [id number]:Eligible professional attests to doc umenting in the medical record they obtained, updated, or reviewed the patient's current medications. . Quality ID [id number]: Final reports for procedures using fluoroscopy that document radiation exposure andreas walter, or exposure time and number of fluorographic images (if radiation exposure indices are not avail able) TECHNICAL DOCUMENTATION: JOB ID: [id number] 2010 [employer]- All Rights Reserved Reading location - IP/workstation name: [email or web address]
[2019-12-15] MEDS: OXYCODONE-ACETAMINOPHEN 5-325 MG TABLET PO PRN ×2 (15:10→21:55)
--- NOTE | 2019-12-15 17:16 | PDOC H&P ---
History of Present Illness Admission Date/PCP: 12/15/19 08:45 CHRIS SHAY MD History of Present Illness: GRAHAM RAMIREZ is a 59 year old male The patient is a 59-year-old white male status post a right hip arthroplasty in [facility] sometime in 2019. I subsequently saw him when he was in extremes of pain ambulating with a walker. The patient underwent an infection work-up which was negative and had a bone scan suggesting a femoral component loosening. He underwent selective injections to determine where the etiology of his pain was. The pain relieving injection in the past was in the hip joint proper. The patient underwent an injection of a combination of anesthetic and anti-inflammatory agent and had reasonable pain relief. The patient's pain relief was sufficient enough that he canceled scheduled revision arthroplasty. The patient was to be seen in my office last week and for one reason or another was not able to make that appointment. The patient presented to the emergency room today and extremes pain. And EMS service was called to bring him to the emergency room. The states that his pain now is significantly greater than it was when I first saw him. In the emergency room there was no new event or condition noted and I was asked to become involved in terms of patient care. His is informed me that there is no way that he would be able to return home and that she would be able to care for him. Tentative plan was then made for a radiographically guided aspirate and injection which was presumably successful from an anatomic standpoint but unsuccessful in alleviating the patient's discomfort. Past Medical History Cardiac Medical History: Reports: Hypertension Past Surgical History Past Surgical History: Reports: Appendectomy, Orthopedic Surgery - Right hip replacement [facility] 2019 Social History Information Source: Patient, DrRommel Office, [facility] Records Lives with: Spouse/Significant other Smoking Status: Never Smoker Frequency of Alcohol Use: Occasional - Advance Directive Resuscitation Status: Full Code Family History Family History: Reviewed & Not Pertinent Parental Family History Reviewed: No Children Family History Reviewed: No Sibling(s) Family History Reviewed.: No Medication/Allergy Home Medications: Lisinopril 10 mg PO DAILY 08/07/12 Carisoprodol [Soma 350 Mg Tablet] 350 mg PO QID 06/04/13 Amitriptyline HCl [Elavil 50 Mg Tablet] 50 mg PO QHS 12/09/19 Ergocalciferol (Vitamin D2) [Vitamin D2] 50,000 unit PO Q7D 12/15/19 Oxycodone HCl/Acetaminophen [Percocet 5-325 mg Tablet] 1 - 2 tab PO Q4HP PRN 12/15/19 Allergies/Adverse Reactions: No Known Allergies Allergy (Verified 10/05/19 12:47) Review of Systems All systems: as per [facility] Physical Exam Vital Signs: Temp Pulse Resp BP Pulse Ox 36.9 C 101 H 20 155/78 H 96 12/15/19 10:04 12/15/19 10:04 12/15/19 06:22 12/15/19 10:04 12/15/19 10:04 Intake & Output 12/14/19 12/15/19 12/16/19 06:59 06:59 06:59 Intake Total 500 Output Total 250 Balance 500 -250 Weight 130.9 kg Physical Exam: Large overweight middle-aged white male lying in bed in no clear distress when he is resting comfortably. Any motion causes wincing in excruciating pain. General appearance: PRESENT: severe distress Head exam: PRESENT: normocephalic Respiratory exam: PRESENT: unlabored Pulses: PRESENT: +1 pedal pulses bilateral Vascular exam: PRESENT: normal capillary refill GI/Abdominal exam: PRESENT: soft Rectal exam: PRESENT: deferred Extremities exam: PRESENT: other - Right lower extremity with intact distal neurovascular examination. There is excruciating pain with passive range of motion. Neurological exam: PRESENT: alert, awake, oriented to person, oriented to place, oriented to time, oriented to situation. ABSENT: motor sensory deficit Skin exam: PRESENT: dry, intact, warm. ABSENT: cyanosis, rash Results Laboratory Results: 12/15/19 03:51 12/15/19 03:51 12/15/19 12/15/19 12/15/19 03:51 03:51 08:51 WBC 11.0 H RBC 4.63 Hgb 13.5 Hct 40.7 MCV 88 MCH 29.1 MCHC 33.2 RDW 13.4 Plt Count 272 Seg Neutrophils % 71.6 Sodium 139.0 Potassium 4.6 Chloride 104 Carbon Dioxide 30 Anion Gap 5 BUN 16 Creatinine 0.60 Est GFR ( Amer) > 60 Glucose 113 H Calcium 9.2 Total Bilirubin 0.3 AST 23 Alkaline Phosphatase 99 Total Protein 6.8 Albumin 3.8 Urine Color YELLOW Urine Appearance CLEAR Urine pH 5.0 Ur Specific [place] 1.020 Urine Protein NEGATIVE Urine Glucose (UA) NEGATIVE Urine Ketones NEGATIVE Urine Blood NEGATIVE Urine Nitrite NEGATIVE Ur Leukocyte Esterase NEGATIVE Urine WBC (Auto) 1 Urine RBC (Auto) 2 Impressions: Hip/Pelvis X-Ray 12/14/19 00:00 IMPRESSION: Questionable left upper pubic arch fracture. Guidance Fluoroscopy 12/15/19 00:00 IMPRESSION: DIAGNOSTIC JOINT SPACE ASPIRATION, WITH INJECTION OF 0.5% BUPIVACAINE INTO THE RIGHT HIP JOINT ABOVE. Hip Aspiration/Injection 12/15/19 00:00 IMPRESSION: DIAGNOSTIC JOINT SPACE ASPIRATION, WITH INJECTION OF 0.5% BUPIVACAINE INTO THE RIGHT HIP JOINT ABOVE. Pelvis CT 12/15/19 00:18 IMPRESSION: No definite acute fracture. Status: Imported from PACS Assessment & Plan - Diagnosis (1) Chronic right hip pain Is this a current diagnosis for this admission?: Yes Plan: At this point the patient's pain seems to be out of proportion to what the suspected underlying etiology is which is a loose femoral stem. I have requested the pain management be involved both for the purpose of helping to understand the etiology of the pain to make sure that there is not a missed etiology and to help with pain management and functional recovery until such time a revision surgery could be scheduled. - Time Time Spent: 50 to 70 Minutes Anticipated discharge: Other Within: Other
[2019-12-15] MEDS: AMITRIPTYLINE HCL 50 MG TABLET PO SCH (19:00)
[2019-12-15] MEDS: LISINOPRIL 10 MG TABLET PO SCH (19:00)
[2019-12-16] MEDS: OXYCODONE-ACETAMINOPHEN 5-325 MG TABLET PO PRN (04:34)
--- NOTE | 2019-12-16 06:40 | PDOC PROGRESS REPORT ---
Subjective Progress Note for:: 12/16/19 Reason For Visit: RIGHT HIP PAIN Hospital day #2 for a 59-year-old white male with intractable hip pain after arthroplasty in [facility] in 2019. Yesterday the patient underwent an intra-articular injection of Marcaine and radiology with limited benefit. Physical Exam Vital Signs: Temp Pulse Resp BP Pulse Ox 36.8 C 102 H 18 137/62 H 95 12/16/19 00:19 12/16/19 00:19 12/16/19 00:19 12/16/19 00:19 12/16/19 00:19 Intake & Output 12/14/19 12/15/19 12/16/19 06:59 06:59 06:59 Intake Total 500 1160 Output Total 1825 Balance 500 -665 Weight 129.9 kg General appearance: PRESENT: severe distress Head exam: PRESENT: normocephalic Respiratory exam: PRESENT: unlabored Cardiovascular exam: PRESENT: RRR Pulses: PRESENT: +1 pedal pulses bilateral Vascular exam: PRESENT: normal capillary refill GI/Abdominal exam: PRESENT: soft Rectal exam: PRESENT: deferred Extremities exam: PRESENT: other - Passive range of motion and even just c ontraction of his quads causes extreme pain in the right hip and inguinal region. Neurological exam: PRESENT: alert, awake, oriented to person, oriented to place, oriented to time, oriented to situation. ABSENT: motor sensory deficit Psychiatric exam: PRESENT: appropriate affect, normal mood. ABSENT: homicidal ideation, suicidal ideation Skin exam: PRESENT: dry, intact, warm. ABSENT: cyanosis, rash Results Laboratory Results: 12/15/19 03:51 12/15/19 03:51 12/15/19 12/15/19 12/15/19 03:51 03:51 08:51 WBC 11.0 H RBC 4.63 Hgb 13.5 Hct 40.7 MCV 88 MCH 29.1 MCHC 33.2 RDW 13.4 Plt Count 272 Seg Neutrophils % 71.6 Sodium 139.0 Potassium 4.6 Chloride 104 Carbon Dioxide 30 Anion Gap 5 BUN 16 Creatinine 0.60 Est GFR ( Amer) > 60 Glucose 113 H Calcium 9.2 Total Bilirubin 0.3 AST 23 Alkaline Phosphatase 99 Total Protein 6.8 Albumin 3.8 Urine Color YELLOW Urine Appearance CLEAR Urine pH 5.0 Ur Specific [place] 1.020 Urine Protein NEGATIVE Urine Glucose (UA) NEGATIVE Urine Ketones NEGATIVE Urine Blood NEGATIVE Urine Nitrite NEGATIVE Ur Leukocyte Esterase NEGATIVE Urine WBC (Auto) 1 Urine RBC (Auto) 2 Impressions: Hip/Pelvis X-Ray 12/14/19 00:00 IMPRESSION: Questionable left upper pubic arch fracture. Guidance Fluoroscopy 12/15/19 00:00 IMPRESSION: DIAGNOSTIC JOINT SPACE ASPIRATION, WITH INJECTION OF 0.5% BUPIVACAINE INTO THE RIGHT HIP JOINT ABOVE. Hip Aspiration/Injection 12/15/19 00:00 IMPRESSION: DIAGNOSTIC JOINT SPACE ASPIRATION, WITH INJECTION OF 0.5% BUPIVACAINE INTO THE RIGHT HIP JOINT ABOVE. Pelvis CT 12/15/19 00:18 IMPRESSION: No definite acute fracture. Status: Imported from PACS Assessment & Plan - Diagnosis (1) Chronic right hip pain Is this a current diagnosis for this admission?: Yes Plan: Awaiting pain management consult from [facility] - Time Time Spent with patient: 15-24 minutes Anticipated discharge: Other Within: Other
[2019-12-16] MEDS: LISINOPRIL 10 MG TABLET PO SCH (09:00)
[2019-12-16] MEDS: HYDROCODONE/ACETAMINOPHEN 10-325 MG TABLET PO PRN ×4 (10:14→22:32)
[2019-12-16 11:48] LABS: ABSOLUTE EOSINOPHILS # (AUTO) 0.1 10^3/uL (0.0-0.6); ABSOLUTE LYMPHOCYTES (AUTO) 1.8 10^3/uL (0.5-4.7); ABSOLUTE MONOCYTES (AUTO) 0.7 10^3/uL (0.1-1.4); ABSOLUTE NEUT (AUTO) 5.7 10^3/uL (1.7-8.2); BASOPHILS % (AUTO) 0.4 % (0-2); EOSINOPHILS % (AUTO) 0.7 % (0-6); HEMATOCRIT 40.5 % (37.9-51.0); HEMOGLOBIN 13.7 g/dL (13.5-17.0); MEAN CORPUSCULAR HEMOGLOBIN 29.7 pg (27.0-33.4); MEAN CORPUSCULAR HGB CONC 33.8 g/dL (32.0-36.0); MEAN CORPUSCULAR VOLUME 88 fl (80-97); MONOCYTES % (AUTO) 8.8 % (3-13); PLATELET COUNT 243 10^3/uL (150-450); RED CELL DISTRIBUTION WIDTH 13.2 % (11.5-14.0); SEGMENTED NEUTROPHILS % (AUTO) 68.1 % (42-78); TOTAL CELLS COUNTED % (AUTO) 100 %; WHITE BLOOD COUNT 8.4 10^3/uL (4.0-10.5)
[2019-12-16 12:18] LABS: ANION GAP 7 (5-19); BLOOD UREA NITROGEN 14 mg/dL (7-20); CALCIUM 9.5 mg/dL (8.4-10.2); CARBON DIOXIDE 31 mmol/L (22-30); CHLORIDE 103 mmol/L (98-107); GLUCOSE 97 mg/dL (75-110); POTASSIUM 4.2 mmol/L (3.6-5.0)
[2019-12-16 12:23] LABS: ERYTHROCYTE SEDIMENTATION RATE 29 mm/hr (0-20)
[2019-12-16] MEDS: PREGABALIN 75 MG CAPSULE PO SCH ×2 (13:32→21:13)
[2019-12-16] MEDS: AMITRIPTYLINE HCL 50 MG TABLET PO SCH (21:13)
--- NOTE | 2019-12-17 00:13 | PDOC CONSULTATION ---
Consultation Consult Date: 12/16/19 Provider Consulted: SAMUEL WALLS Consult reason:: Right hip pain History of Present Illness Admission Date/PCP: 12/15/19 08:45 CHRIS SHAY MD History of Present Illness: GRAHAM RAMIREZ is a 59 year old male presented to ER Saturday d/t progressive severe right hip pain that he could not stand on his own. He is s/p Right ALLEN February 2019 in [place]. He notes following surgery was doing great for a few months before the hip pain started. Went to surgeon in [facility], Dr. Helm, who thought it might be related to his back so pt completed PT [id number] w/o improvement, but actually got worse. Saw Dr. Helm again and upon PE found it was actually his hip. He saw Dr. Mera in August and found femur piece is loose causing significant pain. He planned for revision in September, but pain had gotten better after an injection from Dr. Mera so pt cancelled it. Pain started to come back over the past couple of weeks, but Saturday was so severe his family had to call EMS to take him to the ER. -Pt does have hx of lumbar pain; surgery L4/5 in 2003. Does not feel this is related to his current pain; denies radicular sx. Pain is strictly in the right femur and hip; any motion of the right leg causes severe pain, even just murphy his thigh muscles. -Percocet currently w/o any benefit. He is requesting some sort of nerve block for pain relief. He had been on Hydrocodone in past several years ago which was helpful for back pain at that time; has not tried anything for hip pain. -Amitriptyline currently alleviating his anxiety -Has not tried Neurontin or Lyrica -Pt notes Dr. Mera contemplating surgery for revision again, but needed to r/o infection given pain out of proportion to loose femoral hardware. -(+) constipation; no BM since Saturday; normally multiple BMs daily Past Medical History Cardiac Medical History: Reports: Hypertension Past Surgical History Past Surgical History: Reports: Appendectomy, Orthopedic Surgery - Right hip replacement [facility] 2018, Other - Lumbar discectomy/laminectomy L4/5 2003 Social History Lives with: Spouse/Significant other Smoking Status: Never Smoker Frequency of Alcohol Use: Occasional - Advance Directive Resuscitation Status: Full Code Family History Family History: Reviewed & Not Pertinent Parental Family History Reviewed: No Children Family History Reviewed: No Sibling(s) Family History Reviewed.: No Medication/Allergy Home Medications: Lisinopril 10 mg PO DAILY 08/07/12 Carisoprodol [Soma 350 Mg Tablet] 350 mg PO QID 06/04/13 Amitriptyline HCl [Elavil 50 Mg Tablet] 50 mg PO QHS 10/05/19 Ergocalciferol (Vitamin D2) [Vitamin D2] 50,000 unit PO Q7D 12/15/19 Oxycodone HCl/Acetaminophen [Percocet 5-325 mg Tablet] 1 - 2 tab PO Q4HP PRN 12/15/19 Allergies/Adverse Reactions: No Known Allergies Allergy (Verified 10/05/19 12:47) Review of Systems Constitutional: ABSENT: chills, fever(s), night sweats Cardiovascular: PRESENT: other - (-)calf pain. ABSENT: edema Respiratory: ABSENT: cough, dyspnea Gastrointestinal: PRESENT: constipation Genitourinary: ABSENT: difficulty urinating Musculoskeletal: PRESENT: back pain, other - right hip pain, right femur pain Neurological: ABSENT: frequent falls, paresthesias Physical Exam Vital Signs: Temp Pulse Resp BP Pulse Ox 98.6 F 85 16 127/63 97 RA 12/16/19 07:40 12/16/19 07:40 12/16/19 07:40 12/16/19 07:40 12/16/19 07:40 General appearance: PRESENT: no acute distress, cooperative, obese, well- developed, well-nourished Head exam: PRESENT: atraumatic, normocephalic Eye exam: PRESENT: EOMI. ABSENT: conjunctival injection Respiratory exam: PRESENT: clear to auscultation carolyn, unlabored. ABSENT: accessory muscle use Cardiovascular exam: PRESENT: RRR. ABSENT: diastolic murmur, rubs, systolic murmur Pulses: PRESENT: normal carotid pulses, normal dorsalis pedis pul, +2 pedal pulses bilateral Vascular exam: PRESENT: other - (-)edema GI/Abdominal exam: PRESENT: normal bowel sounds, soft. ABSENT: distended, tenderness Extremities exam: PRESENT: other - (+)scarring right hip and leg. ABSENT: calf tenderness, pedal edema Musculoskeletal exam: PRESENT: tenderness - right hip and femur. ABSENT: ambulatory Neurological exam: PRESENT: alert, awake, oriented to person, oriented to place, oriented to time, oriented to situation, CN II-XII grossly intact, other - (-) clonus on ankle jerks. ABSENT: motor sensory deficit Psychiatric exam: PRESENT: appropriate affect, normal mood Additional comments: Pt's daughter present in room during today's encounter Results Laboratory Results: 12/16/19 11:26 12/16/19 11:26 12/16/19 12/16/19 11: 11:26 WBC 8.4 RBC 4.60 Hgb 13.7 Hct 40.5 MCV 88 MCH 29.7 MCHC 33.8 RDW 13.2 Plt Count 243 Seg Neutrophils % 68.1 Sodium 140.7 Potassium 4.2 Chloride 103 Carbon Dioxide 31 H Anion Gap 7 BUN 14 Creatinine 0.59 Est GFR ( Amer) > 60 Glucose 97 Calcium 9.5 C-Reactive Protein 38.0 H Impressions: Hip/Pelvis X-Ray 12/14/19 00:00 IMPRESSION: Questionable left upper pubic arch fracture. Guidance Fluoroscopy 12/15/19 00:00 IMPRESSION: DIAGNOSTIC JOINT SPACE ASPIRATION, WITH INJECTION OF 0.5% BUPIVA VANNESSA INTO THE RIGHT HIP JOINT ABOVE. Hip Aspiration/Injection 12/15/19 00:00 IMPRESSION: DIAGNOSTIC JOINT SPACE ASPIRATION, WITH INJECTION OF 0.5% BUPIVACAINE INTO THE RIGHT HIP JOINT ABOVE. Pelvis CT 12/15/19 00:18 IMPRESSION: No definite acute fracture. Assessment & Plan - Diagnosis (1) Chronic right hip pain Is this a current diagnosis for this admission?: Yes - Plan Summary Plan Summary: 1. D/c Percocet and trial [place] 10/325mg q4hr prn pain 3-5/5. INR consider rtn to Percocet but increase to 10/325mg q4hr prn 2. Trial addition of Lyrica for additional pain relief 3. Await results of hip culture to r/o infection; continue care with Ortho pending surgical revision right hip arthroplasty 4. If no bowel movement after today, consider addition of bowel regimen medications, ie Colace and Miralax
[2019-12-17] MEDS: PREGABALIN 75 MG CAPSULE PO SCH ×3 (06:20→21:14)
[2019-12-17] MEDS: HYDROCODONE/ACETAMINOPHEN 10-325 MG TABLET PO PRN ×4 (06:21→21:14)
--- NOTE | 2019-12-17 06:58 | PDOC PROGRESS REPORT ---
Subjective Progress Note for:: 12/17/19 Reason For Visit: RIGHT HIP PAIN 59-year-old white male with ongoing right hip pain status post right hip arthroplasty in the intermediate past. Events yesterday were evaluation by pain management. Led to an adjustment in the patient's medications and is more comfortable this morning. Physical Exam Vital Signs: Temp Pulse Resp BP Pulse Ox 36.9 C 79 16 125/73 96 12/16/19 23:57 12/16/19 23:57 12/16/19 23:57 12/16/19 23:57 12/16/19 23:57 Intake & Output 12/15/19 12/16/19 12/17/19 06:59 06:59 06:59 Intake Total 500 1160 720 Output Total 1825 2750 Balance 500 -665 -2030 Weight 129.9 kg 133 kg Physical Exam: Large middle-aged white male lying in hospital bed completing a crossword puzzle General appearance: PRESENT: mild distress, well-developed, well-nourished Head exam: PRESENT: normocephalic Respiratory exam: PRESENT: unlabored Cardiovascular exam: PRESENT: RRR Pulses: PRESENT: +1 pedal pulses bilateral Vascular exam: PRESENT: normal capillary refill GI/Abdominal exam: PRESENT: soft Rectal exam: PRESENT: deferred Neurological exam: PRESENT: alert, awake, oriented to person, oriented to place, oriented to time, oriented to situation, CN II-XII grossly intact. ABSENT: motor sensory deficit Results Laboratory Results: 12/16/19 11:26 12/16/19 11:26 12/16/19 12/16/19 11:26 11:26 WBC 8.4 RBC 4.60 Hgb 13.7 Hct 40.5 MCV 88 MCH 29.7 MCHC 33.8 RDW 13.2 Plt Count 243 Seg Neutrophils % 68.1 Sodium 140.7 Potassium 4.2 Chloride 103 Carbon Dioxide 31 H Anion Gap 7 BUN 14 Creatinine 0.59 Est GFR ( Amer) > 60 Glucose 97 Calcium 9.5 C-Reactive Protein 38.0 H Impressions: Hip/Pelvis X-Ray 12/14/19 00:00 IMPRESSION: Questionable left upper pubic arch fracture. Guidance Fluoroscopy 12/15/19 00:00 IMPRESSION: DIAGNOSTIC JOINT SPACE ASPIRATION, WITH INJECTION OF 0.5% BUPIVACAINE INTO THE RIGHT HIP JOINT ABOVE. Hip Aspiration/Injection 12/15/19 00:00 IMPRESSION: DIAGNOSTIC JOINT SPACE ASPIRATION, WITH INJECTION OF 0.5% BUPIVACAINE INTO THE RIGHT HIP JOINT ABOVE. Pelvis CT 12/15/19 00:18 IMPRESSION: No definite acute fracture. Status: Imported from PACS Assessment & Plan - Diagnosis (1) Chronic right hip pain Is this a current diagnosis for this admission?: Yes Plan: Pain management consult completed but what I had asked Dr. De La Fuente to consider was helping determine the etiology of the patient's discomfort. I have again contacted him this morning to ask him to review this. The interval findings are notable for an intra-articular injection of Marcaine in radiology which provided no significant pain relief. I discussed this with Dr. chaney 1 of the radiologists within the group who felt that the findings were equivocal and that potentially a repeat bone scan might help sort out whether or not there is femoral stem length loosening. This is been ordered and not yet completed. Sedimentation rate and C-reactive protein remain mildly elevated and the aspirate from radiology remains no growth so far. - Time Time Spent with patient: 15-24 minutes Anticipated discharge: Home Within: Other
[2019-12-17] MEDS: LISINOPRIL 10 MG TABLET PO SCH (10:08)
--- NOTE | 2019-12-17 16:27 | RADIOLOGY REPORT (SQ) ---
EXAM DESCRIPTION: NM 3 PHASE BONE SCAN COMPLETED DATE/TIME: 12/17/2019 3:17 pm REASON FOR STUDY: evaluate right hip pain COMPARISON: 09/16/2019 RADIONUCLIDE AND DOSE: 22.0 millicuries Tc99m MDP. The route of agent administration: Intravenous. ADDITIONAL DRUGS AND DOSES: None. TECHNIQUE: Following injection of the radiopharmaceutical, serial blood flow images acquired. Equil ibrium blood pool images then acquired. Routine delayed images at 3 hour acquired of the areas of cl inical concern with additional focused images as needed. AREA OF INTEREST: Right hip LIMITATIONS: None. FINDINGS: VASCULAR FLOW IMAGES: No asymmetry or focal areas of hyperemia. BLOOD POOL IMAGES: No asymmetry or focal areas of soft-tissue hyper-perfusion. BONES: Interval increase in uptake of radiopharmaceutical adjacent to the femoral component compare t o the prior. There is increased uptake extending down the femoral shaft as well as the fibular shaft of uncertain clinical significance. 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 Pattern not typ ical for regional pain syndrome. KIDNEYS: Symmetric excretion without obstruction. OTHER: No other significant finding. IMPRESSION: Findings suspicious for loosening of the femoral component. COMMENT: Quality measure 147: Current bone scan is compared with any available plain radiographs, p rior bone scans, and CT/MRI. TECHNICAL DOCUMENTATION: JOB ID: [id number] 2010 [employer]- All Rights Reserved Reading location - IP/workstation name: [email or web address]
--- NOTE | 2019-12-17 16:28 | RADIOLOGY REPORT (SQ) ---
EXAM DESCRIPTION: FLUORO/NEEDLE PLACEMENT; INJECT/ASPIR HIP/SHLDR/KNEE COMPLETED DATE/TIME: 12/17/2019 3:54 pm REASON FOR STUDY: hip pain; RT HIP PAIN COMPARISON: CT of the pelvis 12/15/2019, bone scan 12/17/2019, and previous hip injection 12/15/2019 FLUOROSCOPY TIME: 1 minutes of fluoroscopy was used. 3 images saved to PACS. LIMITATIONS: None. PROCEDURE: SITE OF INJECTION: Right hip LOCALIZING CONTRAST TYPE AND DOSE: 8 mL Omnipaque 300 MEDICATION TYPE AND DOSE: 5 mL lidocaine and 9 mL Sensorcaine Using local anesthesia and sterile technique with fluoroscopic guidance, the needle was advanced into the joint. 3 mL Omnipaque 300 was injected to verify intraarticular placement. 5 mL Omnipaque 300 was instilled which showed filling of the joint capsule without extravasation of contrast along the f emoral component of the prosthesis. Small amount extravasation along the superolateral aspect of the acetabular component into the soft tissues. Contrast cannot be seen between the acetabular componen t and the bone. This was followed by therapeutic injection of the indicated medications. The needle was removed. There were no immediate complications. Preprocedure pain level: 8/10 with movement of the right leg. Postprocedure pain level: 5/10 with increased range of motion of the right leg. IMPRESSION: THERAPEUTIC INJECTION OF THE RIGHT HIP JOINT ABOVE. COMMENT: Patient medication list reviewed: Yes- Quality ID# [id number]:Eligible professional attests to doc umenting in the medical record they obtained, updated, or reviewed the patient's current medications. . Quality ID 145: Final reports for procedures using fluoroscopy that document radiation exposure andreas walter, or exposure time and number of fluorographic images (if radiation exposure indices are not avail able) TECHNICAL DOCUMENTATION: JOB ID: [id number] 2010 [employer]- All Rights Reserved Reading location - IP/workstation name: [email or web address] [id number]
[2019-12-17] MEDS: AMITRIPTYLINE HCL 50 MG TABLET PO SCH (21:14)
[2019-12-17] MEDS: DOCUSATE SODIUM 100 MG CAPSULE PO SCH (22:45)
[2019-12-17] MEDS ORDERED: DOCUSATE SODIUM 100 MG CAPSULE PO ONE (23:00)
[2019-12-18] MEDS: PREGABALIN 75 MG CAPSULE PO SCH ×3 (05:25→22:08)
--- NOTE | 2019-12-18 06:51 | PDOC PROGRESS REPORT ---
Subjective Progress Note for:: 12/18/19 Reason For Visit: RIGHT HIP PAIN 59-year-old white male with ongoing right hip pain status post right hip arthroplasty in the intermediate past. After discussions with Dr. Barnett the patient underwent a repeat injection into the right hip yesterday with a combination of anesthetic and contrast agent. This provided little if any relief of the patient's discomfort. Physical Exam Vital Signs: Temp Pulse Resp BP Pulse Ox 36.8 C 110 H 16 121/60 98 12/17/19 23:52 12/17/19 23:52 12/17/19 23:52 12/17/19 23:52 12/17/19 23:52 Intake & Output 12/16/19 12/17/19 12/18/19 06:59 06:59 06:59 Intake Total 1160 1020 1558 Output Total 1828 3150 0799 Balance -555 -9221 -9985 Weight 129.9 kg 133 kg 133.5 kg General appearance: PRESENT: severe distress, well-developed, well-nourished Respiratory exam: PRESENT: unlabored Cardiovascular exam: PRESENT: RRR Pulses: PRESENT: +1 pedal pulses bilateral Vascular exam: PRESENT: normal capillary refill GI/Abdominal exam: PRESENT: soft Rectal exam: PRESENT: deferred Extremities exam: PRESENT: other - Leg lengths are equal. Right hip incision is well-healed. Passive range of motion of the right hip is painful. Contraction of the quads causes the patient exquisite pain. Neurological exam: PRESENT: alert, awake, oriented to person, oriented to place, oriented to time, oriented to situation. ABSENT: motor sensory deficit Psychiatric exam: PRESENT: appropriate affect, normal mood. ABSENT: homicidal ideation, suicidal ideation Skin exam: PRESENT: dry, intact, warm. ABSENT: cyanosis, rash Results Laboratory Results: 12/16/19 11:26 12/16/19 11:26 Impressions: Hip/Pelvis X-Ray 12/14/19 00:00 IMPRESSION: Questionable left upper pubic arch fracture. Pelvis CT 12/15/19 00:18 IMPRESSION: No definite acute fracture. Bone Scan Nuclear Medicine 12/16/19 10:56 IMPRESSION: Findings suspicious for loosening of the femoral component. Hip Aspiration/Injection 12/17/19 00:00 IMPRESSION: THERAPEUTIC INJECTION OF THE RIGHT HIP JOINT ABOVE. Guidance Fluoroscopy 12/17/19 14:39 IMPRESSION: THERAPEUTIC INJECTION OF THE RIGHT HIP JOINT ABOVE. Status: Imported from PACS Assessment & Plan - Diagnosis (1) Chronic right hip pain Is this a current diagnosis for this admission?: Yes Plan: At this point after a second intra-articular injection and little benefit even temporarily on the patient's behalf I am beginning to doubt that the hip is the etiology of the patient's discomfort. Have asked Dr. De La Fuente to evaluate the patient in terms of his thoughts on etiology of the patient's discomfort. In the interim again go ahead and repeat the patient's lumbar MRI scan. - Time Time Spent with patient: 15-24 minutes Anticipated discharge: Home with Homehealth Within: Other
[2019-12-18] MEDS: LISINOPRIL 10 MG TABLET PO SCH (09:43)
[2019-12-18] MEDS: HYDROCODONE/ACETAMINOPHEN 10-325 MG TABLET PO PRN (09:43)
[2019-12-18] MEDS: DOCUSATE SODIUM 100 MG CAPSULE PO SCH ×2 (09:43→17:27)
[2019-12-18 11:48] LABS: ABSOLUTE BASOPHILS # (AUTO) 0.1 10^3/uL (0.0-0.2); ABSOLUTE LYMPHOCYTES (AUTO) 1.2 10^3/uL (0.5-4.7); ABSOLUTE MONOCYTES (AUTO) 1.1 10^3/uL (0.1-1.4); ABSOLUTE NEUT (AUTO) 6.3 10^3/uL (1.7-8.2); BASOPHILS % (AUTO) 0.9 % (0-2); EOSINOPHILS % (AUTO) 0.3 % (0-6); HEMATOCRIT 42.2 % (37.9-51.0); HEMOGLOBIN 14.3 g/dL (13.5-17.0); LYMPHOCYTES % (AUTO) 13.7 % (13-45); MEAN CORPUSCULAR HEMOGLOBIN 29.5 pg (27.0-33.4); MEAN CORPUSCULAR HGB CONC 33.9 g/dL (32.0-36.0); MEAN CORPUSCULAR VOLUME 87 fl (80-97); MONOCYTES % (AUTO) 12.3 % (3-13); PLATELET COUNT 243 10^3/uL (150-450); RED BLOOD COUNT 4.84 10^6/uL (4.35-5.55); RED CELL DISTRIBUTION WIDTH 13.1 % (11.5-14.0); SEGMENTED NEUTROPHILS % (AUTO) 72.8 % (42-78); TOTAL CELLS COUNTED % (AUTO) 100 %; WHITE BLOOD COUNT 8.7 10^3/uL (4.0-10.5)
[2019-12-18 12:26] LABS: ERYTHROCYTE SEDIMENTATION RATE 41 mm/hr (0-20)
[2019-12-18] MEDS: HYDROCODONE/ACETAMINOPHEN 10-325 MG TABLET PO SCH ×3 (13:22→22:08)
[2019-12-18] MEDS: VANCOMYCIN HCL 1,500 MG in DEXTROSE 5%-WATER 250 ML IV SCH ×2 (14:44→22:09)
[2019-12-18] MEDS ORDERED: ERGOCALCIFEROL (VITAMIN D2) 50000 UNIT (1.25 MG) CAPSULE PO SCH (16:00)
[2019-12-18] MEDS: AMITRIPTYLINE HCL 50 MG TABLET PO SCH (22:08)
[2019-12-19] MEDS: HYDROCODONE/ACETAMINOPHEN 10-325 MG TABLET PO SCH ×6 (02:08→22:21)
[2019-12-19] MEDS: PREGABALIN 75 MG CAPSULE PO SCH ×3 (06:22→22:21)
--- NOTE | 2019-12-19 08:15 | PDOC PROGRESS REPORT ---
Subjective Progress Note for:: 12/19/19 Reason For Visit: RIGHT HIP PAIN 59-year-old white male with intractable right hip pain following right hip arthroplasty approximately 9 months ago. Events of yesterday are notable for an evaluation by Juan C De La Fuente who raises the issue of potential underlying smoldering infection in spite of the fact that sedimentation rate, C-reactive protein levels are only mildly elevated and that cultures have been negative. I discussed the situation with Dr. Barnett and discussed the applicability of a tagged white blood cell scan. Dr. Barnett feels that the tagged white blood cell scan would be sensitive but not necessarily specific. Physical Exam Vital Signs: Temp Pulse Resp BP Pulse Ox 37.0 C 103 H 17 147/72 H 98 12/18/19 23:19 12/18/19 23:19 12/18/19 23:19 12/18/19 23:19 12/18/19 23:19 Intake & Output 12/18/19 12/19/19 12/20/19 06:59 06:59 06:59 Intake Total 1558 2478 Output Total 3715 2250 Balance -2157 228 Weight 133.5 kg 133 kg General appearance: PRESENT: mild distress, obese Respiratory exam: PRESENT: unlabored Cardiovascular exam: PRESENT: RRR Pulses: PRESENT: +1 pedal pulses bilateral Results Laboratory Results: 12/18/19 11:05 12/16/19 11:26 12/18/19 12/18/19 11:05 11:05 WBC 8.7 RBC 4.84 Hgb 14.3 Hct 42.2 MCV 87 MCH 29.5 MCHC 33.9 RDW 13.1 Plt Count 243 Seg Neutrophils % 72.8 C-Reactive Protein 36.1 H 12/15/19 14:04 Hip - Joint Gram Stain - Final 12/15/19 14:04 Hip - Joint Body Fluid Culture - Final NO AEROBIC OR ANAEROBIC ORGANISMS RECOVERED Impressions: Hip/Pelvis X-Ray 12/14/19 00:00 IMPRESSION: Questionable left upper pubic arch fracture. Pelvis CT 12/15/19 00:18 IMPRESSION: No definite acute fracture. Bone Scan Nuclear Medicine 12/16/19 10:56 IMPRESSION: Findings suspicious for loosening of the femoral component. Hip Aspiration/Injection 12/17/19 00:00 IMPRESSION: THERAPEUTIC INJECTION OF THE RIGHT HIP JOINT ABOVE. Guidance Fluoroscopy 12/17/19 14:39 IMPRESSION: THERAPEUTIC INJECTION OF THE RIGHT HIP JOINT ABOVE. Assessment & Plan - Diagnosis (1) Chronic right hip pain Is this a current diagnosis for this admission?: Yes Plan: At this point we can attempt to mobilize the patient with physical therapy. An MRI scan of the lumbar spine is been ordered to evaluate this as an etiology of his discomfort although the likelihood that this will be fruitful is probably less after talking to Dr. De La Fuente. We will proceed with a tagged white blood cell scan. - Time Time Spent with patient: 15-24 minutes Anticipated discharge: Home with Homehealth Within: Other
[2019-12-19] MEDS: LISINOPRIL 10 MG TABLET PO SCH (09:11)
[2019-12-19] MEDS: DOCUSATE SODIUM 100 MG CAPSULE PO SCH ×2 (09:11→18:39)
[2019-12-19] MEDS: VANCOMYCIN HCL 1,500 MG in DEXTROSE 5%-WATER 250 ML IV SCH ×2 (09:11→22:20)
[2019-12-19] MEDS: POLYETHYLENE GLYCOL 3350 POWDER 17 GM/1 PACKET PO SCH (09:12)
[2019-12-19] MEDS ORDERED: MAGNESIUM CITRATE 296 ML BOTTLE PO ONE (15:15)
--- NOTE | 2019-12-19 15:21 | RADIOLOGY REPORT (SQ) ---
EXAM DESCRIPTION: MRI LUMBAR SPINE WITHOUT COMPLETED DATE/TIME: 12/19/2019 12:01 pm REASON FOR STUDY: hip and back pain COMPARISON: None. TECHNIQUE: Sagittal and Axial imaging includes T1, T2, STIR and gradient echo sequences. Coronal T2/ HASTE imaging. LIMITATIONS: None. FINDINGS: VISUALIZED UPPER ABDOMEN: Limited evaluation. No acute or suspicious findings suggested. SEGMENTATION: No transitional anatomy. The lowest well-developed disc space is labeled L5-S1. ALIGNMENT: Anatomic. VERTEBRAE: Intact. BONE MARROW: Reactive endplate changes L2-3 and L4-5. DISC SIGNAL: Generalized loss T2 signal. POSTERIOR ELEMENTS: Generally intact. No pars defect evident. HARDWARE: None in the spine. CORD AND CONUS: Normal in size and signal intensity. Conus at the appropriate level. SOFT TISSUES: No aortic aneurysm seen. No bulky retroperitoneal adenopathy or mass. No paraspinal mas s or fluid. L1-L2: No significant spinal stenosis or exit foraminal stenosis. L2-L3: No significant spinal stenosis or exit foraminal stenosis. L3-L4: Generalized disc bulge. Posterior element overgrowth. Mild narrowing of the exit foramina ce ntral canal stenosis. L4-L5: Generalized disc bulge asymmetric left. There is flattening of the intrathecal left L5 root. Mild narrowing of the exit foramina. L5-S1: No significant spinal stenosis or exit foraminal stenosis. Disc bulge. LOWER THORACIC: Incompletely imaged. No stenosis seen. SACRUM: Visualized upper sacrum intact. OTHER: No other significant findings. IMPRESSION: Mild spinal stenosis and exit foraminal stenosis L3-4. Disc bulge L4-5 asymmetric left with flattening of the intrathecal left L5 root and mild narrowing of the exit foramina. TECHNICAL DOCUMENTATION: JOB ID: [id number] [employer]- All Rights Reserved Reading location - IP/workstation name: [email or web address]
[2019-12-19] MEDS: AMITRIPTYLINE HCL 50 MG TABLET PO SCH (22:21)
[2019-12-20] MEDS: HYDROCODONE/ACETAMINOPHEN 10-325 MG TABLET PO SCH ×6 (02:00→22:12)
[2019-12-20] MEDS: PREGABALIN 75 MG CAPSULE PO SCH ×3 (06:06→22:12)
--- NOTE | 2019-12-20 07:50 | PDOC PROGRESS REPORT ---
Subjective Progress Note for:: 12/20/19 Reason For Visit: RIGHT HIP PAIN 59-year-old status post right hip arthroplasty in the past now with ongoing right hip pain that is in the process of ongoing evaluation. [place] notable for an MRI scan of the lumbar spine which demonstrated L3-4 as well as L4-5 disc issues but that would not explain the location of the patient's discomfort. Patient was started empirically on vancomycin as a test for potential underlying smoldering arthritis. There is no significant improvement as a result of that. Tagged white blood cell scan is pending. Patient was able to get out of bed to a commode yesterday. Physical Exam Vital Signs: Temp Pulse Resp BP Pulse Ox 37.1 C 96 16 151/76 H 98 12/19/19 23:39 12/19/19 23:39 12/19/19 23:39 12/19/19 23:39 12/19/19 23:39 Intake & Output 12/19/19 12/20/19 12/21/19 06:59 06:59 06:59 Intake Total 2478 2051 Output Total 2250 1475 Balance 228 576 Weight 133 kg 131.7 kg General appearance: PRESENT: mild distress, obese Respiratory exam: PRESENT: unlabored Cardiovascular exam: PRESENT: RRR Pulses: PRESENT: +1 pedal pulses bilateral Vascular exam: PRESENT: normal capillary refill Extremities exam: PRESENT: other - Passive range of motion of the right lower extremity causes excruciating pain. Leg lengths are equal. Distal neurovascular examination is intact. Results Laboratory Results: 12/18/19 11:05 12/16/19 11:26 12/15/19 14:04 Hip - Joint Gram Stain - Final 12/15/19 14:04 Hip - Joint Body Fluid Culture - Final NO AEROBIC OR ANAEROBIC ORGANISMS RECOVERED Impressions: Hip/Pelvis X-Ray 12/14/19 00:00 IMPRESSION: Questionable left upper pubic arch fracture. Pelvis CT 12/15/19 00:18 IMPRESSION: No definite acute fracture. Bone Scan Nuclear Medicine 12/16/19 10:56 IMPRESSION: Findings suspicious for loosening of the femoral component. Hip Aspiration/Injection 12/17/19 00:00 IMPRESSION: THERAPEUTIC INJECTION OF THE RIGHT HIP JOINT ABOVE. Guidance Fluoroscopy 12/17/19 14:39 IMPRESSION: THERAPEUTIC INJECTION OF THE RIGHT HIP JOINT ABOVE. Lumbar Spine MRI 12/19/19 00:00 IMPRESSION: Mild spinal stenosis and exit foraminal stenosis L3-4. Disc bulge L4-5 asymmetric left with flattening of the intrathecal left L5 root and mild narrowing of the exit foramina. Status: Imported from PACS Assessment & Plan - Diagnosis (1) Chronic right hip pain Is this a current diagnosis for this admission?: Yes Plan: Mobilized with physical therapy and weightbearing as tolerated basis. Awaiting tagged white blood cell scan. - Time Time Spent with patient: 15-24 minutes Anticipated discharge: Home with Homehealth Within: Other
[2019-12-20] MEDS: LISINOPRIL 10 MG TABLET PO SCH (09:54)
[2019-12-20] MEDS: DOCUSATE SODIUM 100 MG CAPSULE PO SCH ×2 (09:54→17:23)
[2019-12-20] MEDS: POLYETHYLENE GLYCOL 3350 POWDER 17 GM/1 PACKET PO SCH (09:54)
[2019-12-20] MEDS: VANCOMYCIN HCL 1,500 MG in DEXTROSE 5%-WATER 250 ML IV SCH ×2 (09:54→22:12)
[2019-12-20 21:58] LABS: VANCOMYCIN,TROUGH 8.4 ug/mL (5.0-20.0)
[2019-12-20] MEDS: AMITRIPTYLINE HCL 50 MG TABLET PO SCH (22:12)
[2019-12-21] MEDS: HYDROCODONE/ACETAMINOPHEN 10-325 MG TABLET PO SCH ×6 (02:03→22:09)
[2019-12-21] MEDS: PREGABALIN 75 MG CAPSULE PO SCH ×3 (06:27→22:09)
[2019-12-21] MEDS: DOCUSATE SODIUM 100 MG CAPSULE PO SCH ×2 (09:42→17:17)
[2019-12-21] MEDS: POLYETHYLENE GLYCOL 3350 POWDER 17 GM/1 PACKET PO SCH (09:42)
[2019-12-21] MEDS: VANCOMYCIN HCL 1,250 MG in DEXTROSE 5%-WATER 250 ML IV SCH ×2 (09:42→17:17)
[2019-12-21] MEDS: LISINOPRIL 10 MG TABLET PO SCH (09:42)
--- NOTE | 2019-12-21 16:17 | RADIOLOGY REPORT (SQ) ---
EXAM DESCRIPTION: NM TAGGED WBC WHOLE BODY COMPLETED DATE/TIME: 12/21/2019 4:01 pm REASON FOR STUDY: R HIP PAIN (ATTN:DR KENNY) COMPARISON: None. RADIONUCLIDE AND DOSE: 19.5 mCi technetium 99 Ceretec tagged white blood cells intravenous. ADDITIONAL DRUGS AND DOSES: None. TECHNIQUE: Whole-body planar images. Cone down views of the pelvis. Images saved to PACs. LIMITATIONS: None. FINDINGS: There is normal distribution of radiotracer. No abnormal activity in the right hip prosth esis. IMPRESSION: Normal tagged white cell scan. No evidence of inflammation or infection. TECHNICAL DOCUMENTATION: JOB ID: [id number] 2010 [employer]- All Rights Reserved Reading location - IP/workstation name: [email or web address]
[2019-12-21] MEDS: AMITRIPTYLINE HCL 50 MG TABLET PO SCH (22:10)
[2019-12-22] MEDS: VANCOMYCIN HCL 1,250 MG in DEXTROSE 5%-WATER 250 ML IV SCH (02:41)
[2019-12-22] MEDS: HYDROCODONE/ACETAMINOPHEN 10-325 MG TABLET PO SCH ×3 (02:42→09:22)
[2019-12-22] MEDS: PREGABALIN 75 MG CAPSULE PO SCH (06:43)
[2019-12-22] MEDS: DOCUSATE SODIUM 100 MG CAPSULE PO SCH (09:21)
[2019-12-22] MEDS: POLYETHYLENE GLYCOL 3350 POWDER 17 GM/1 PACKET PO SCH (09:22)
[2019-12-22] MEDS: LISINOPRIL 10 MG TABLET PO SCH (09:22)
[2019-12-22] MEDS ORDERED: PHARMACY COMMUNICATION ORDER MC SCH (09:45)
[2019-12-22 11:31] VITALS: BP 143/66
--- NOTE | 2019-12-28 08:39 | PDOC DISCHARGE SUMMARY ---
Impression - Admit/DC Date/PCP Admission Date/Primary Care Provider: 12/15/19 08:45 CHRIS SHAY MD Discharge Date: 12/21/19 - Discharge Diagnosis (1) Chronic right hip pain Is this a current diagnosis for this admission?: Yes - Additional Information Resuscitation Status: Full Code Discharge Diet: Regular Discharge Activity: Activity As Tolerated, No Driving Referrals: JOHN MERA MD [ACTIVE STAFF] - 12/31/19 11:00 am CHRIS SHAY MD [Primary Care Provider] - 01/11/20 11:00 am Home Medications: Lisinopril 10 mg PO DAILY 08/07/12 Carisoprodol [Soma 350 Mg Tablet] 350 mg PO QID 06/04/13 Amitriptyline HCl [Elavil 50 Mg Tablet] 50 mg PO QHS 10/05/19 Ergocalciferol (Vitamin D2) [Vitamin D2] 50,000 unit PO Q7D 12/15/19 Oxycodone HCl/Acetaminophen [Percocet 5-325 mg Tablet] 1 - 2 tab PO Q4HP PRN 12/15/19 History of Present Illiness History of Present Illness: The patient is a 59-year-old white male status post right hip arthroplasty in [facility] in 2019 with postoperative right infection. Working with therapy by band exercises at 3 to 4 weeks postop the patient experienced acute onset excruciating right hip pain. He has been evaluated in a number of locations including as an outpatient with myself. Most recently he presented to the emergency room with excruciating pain and inability to participate in activities of daily living and care for himself. He was admitted to the orthopedic service primarily because of functional deficit. Hospital Course Hospital Course: Patient was admitted to the orthopedic service and underwent a number of interventions that were radiology guided including an aspiration and injection, and arthrogram, a bone scan, lumbar MRI scan, and a tagged white blood cell scan. The patient was also seen by pain management. Multiple discussions between myself Dr. Barnett and Dr. De La Fuente ensued without a clear etiology to the patient's discomfort. Was felt that this was from multiple etiologies including lumbar spine degenerative disc disease, potentially radiculopathy, and probably an intra-articular right hip pathology. Throughout the course of the week that the patient was here his right hip pain abated to some extent he felt that he was able to be discharged home at this point. Physical Exam Vital Signs: Temp Pulse Resp BP Pulse Ox 36.3 C 101 H 20 143/66 H 95 12/22/19 11:25 12/22/19 11:25 12/22/19 11:25 12/22/19 11:25 12/22/19 11:25 General appearance: PRESENT: mild distress, obese Head exam: PRESENT: normocephalic Respiratory exam: PRESENT: unlabored Cardiovascular exam: PRESENT: RRR Pulses: PRESENT: +1 pedal pulses bilateral Vascular exam: PRESENT: normal capillary refill GI/Abdominal exam: PRESENT: soft Rectal exam: PRESENT: deferred Musculoskeletal exam: PRESENT: other - Right hip incision is well-healed. Neurological exam: PRESENT: alert, awake, oriented to person, oriented to place, oriented to time, oriented to situation, CN II-XII grossly intact. ABSENT: motor sensory deficit Psychiatric exam: PRESENT: appropriate affect, normal mood. ABSENT: homicidal ideation, suicidal ideation Skin exam: PRESENT: dry, intact, warm. ABSENT: cyanosis, rash Results Laboratory Results: WBC 8.7 10^3/uL (4.0-10.5) 12/18/19 11:05 RBC 4.84 10^6/uL (4.35-5.55) 12/18/19 11:05 Hgb 14.3 g/dL (13.5-17.0) 12/18/19 11:05 Hct 42.2 % (37.9-51.0) 12/18/19 11:05 MCV 87 fl (80-97) 12/18/19 11:05 MCH 29.5 pg (27.0-33.4) 12/18/19 11:05 MCHC 33.9 g/dL (32.0-36.0) 12/18/19 11:05 RDW 13.1 % (11.5-14.0) 12/18/19 11:05 Plt Count 243 10^3/uL (150-450) 12/18/19 11:05 Lymph % (Auto) 13.7 % (13-45) 12/18/19 11:05 [place] % (Auto) 12.3 % (3-13) 12/18/19 11:05 Eos % (Auto) 0.3 % (0-6) 12/18/19 11:05 Baso % (Auto) 0.9 % (0-2) 12/18/19 11:05 Absolute Neuts (auto) 6.3 10^3/uL (1.7-8.2) 12/18/19 11:05 Absolute Lymphs (auto) 1.2 10^3/uL (0.5-4.7) 12/18/19 11:05 Absolute Monos (auto) 1.1 10^3/uL (0.1-1.4) 12/18/19 11:05 Absolute Eos (auto) 0.0 10^3/uL (0.0-0.6) 12/18/19 11:05 Absolute Basos (auto) 0.1 10^3/uL (0.0-0.2) 12/18/19 11:05 Seg Neutrophils % 72.8 % (42-78) 12/18/19 11:05 ESR 41 mm/hr (0-20) H 12/18/19 11:05 Sodium 140.7 mmol/L (137-145) 12/16/19 11:26 Potassium 4.2 mmol/L (3.6-5.0) 12/16/19 11:26 Chloride 103 mmol/L (98-107) 12/16/19 11:26 Carbon Dioxide 31 mmol/L (22-30) H 12/16/19 11:26 Anion Gap 7 (5-19) 12/16/19 11:26 BUN 14 mg/dL (7-20) 12/16/19 11:26 Creatinine 0.59 mg/dL (0.52-1.25) 12/20/19 21:09 Est GFR ( Amer) > 60 (>60) 12/20/19 21:09 Est GFR (MDRD) Non-Af > 60 (>60) 12/20/19 21:09 Glucose 97 mg/dL (75-110) 12/16/19 11:26 Calcium 9.5 mg/dL (8.4-10.2) 12/16/19 11:26 Total Bilirubin 0.3 mg/dL (0.2-1.3) 12/15/19 03:51 Direct Bilirubin 0.0 mg/dL (0.0-0.4) 12/15/19 03:51 Neonat Total Bilirubin Not Reportable 12/15/19 03:51 Neonat Direct Bilirubin Not Reportable 12/15/19 03:51 Neonat Indirect Bili Not Reportable 12/15/19 03:51 AST 23 U/L (17-59) 12/15/19 03:51 ALT 22 U/L (<50) 12/15/19 03:51 Alkaline Phosphatase 99 U/L (38-126) 12/15/19 03:51 C-Reactive Protein 36.1 mg/L (<10.0) H 12/18/19 11:05 Total Protein 6.8 g/dL (6.3-8.2) 12/15/19 03:51 Albumin 3.8 g/dL (3.5-5.0) 12/15/19 03:51 Urine Color YELLOW 12/15/19 08:51 Urine Appearance CLEAR 12/15/19 08:51 Urine pH 5.0 (5.0-9.0) 12/15/19 08:51 Ur Specific [place] 1.020 12/15/19 08:51 Urine Protein NEGATIVE mg/dL (NEGATIVE) 12/15/19 08:51 Urine Glucose (UA) NEGATIVE mg/dL (NEGATIVE) 12/15/19 08:51 Urine Ketones NEGATIVE mg/dL (NEGATIVE) 12/15/19 08:51 Urine Blood NEGATIVE (NEGATIVE) 12/15/19 08:51 Urine Nitrite NEGATIVE (NEGATIVE) 12/15/19 08:51 Urine Bilirubin NEGATIVE (NEGATIVE) 12/15/19 08:51 Urine Urobilinogen NEGATIVE mg/dL (<2.0) 12/15/19 08:51 Ur Leukocyte Esterase NEGATIVE (NEGATIVE) 12/15/19 08:51 Urine WBC (Auto) 1 /HPF 12/15/19 08:51 Urine RBC (Auto) 2 /HPF 12/15/19 08:51 U Hyaline Cast (Auto) 4 /LPF 12/15/19 08:51 Urine Mucus (Auto) RARE /LPF 12/15/19 08:51 Urine Ascorbic Acid 20 (NEGATIVE) H 12/15/19 08:51 Time Trough Drawn 21012/20/19 21:09 Vancomycin Trough 8.4 ug/mL (5.0-20.0) 12/20/19 21:09 Impressions: Hip/Pelvis X-Ray 12/14/19 00:00 IMPRESSION: Questionable left upper pubic arch fracture. Guidance Fluoroscopy 12/15/19 00:00 IMPRESSION: DIAGNOSTIC JOINT SPACE ASPIRATION, WITH INJECTION OF 0.5% BUPIVACAINE INTO THE RIGHT HIP JOINT ABOVE. Hip Aspiration/Injection 12/15/19 00:00 IMPRESSION: DIAGNOSTIC JOINT SPACE ASPIRATION, WITH INJECTION OF 0.5% BUPIVACAINE INTO THE RIGHT HIP JOINT ABOVE. Pelvis CT 12/15/19 00:18 IMPRESSION: No definite acute fracture. Bone Scan Nuclear Medicine 12/16/19 10:56 IMPRESSION: Findings suspicious for loosening of the femoral component. Hip Aspiration/Injection 12/17/19 00:00 IMPRESSION: THERAPEUTIC INJECTION OF THE RIGHT HIP JOINT ABOVE. Guidance Fluoroscopy 12/17/19 14:39 IMPRESSION: THERAPEUTIC INJECTION OF THE RIGHT HIP JOINT ABOVE. Lumbar Spine MRI 12/19/19 00:00 IMPRESSION: Mild spinal stenosis and exit foraminal stenosis L3-4. Disc bulge L4-5 asymmetric left with flattening of the intrathecal left L5 root and mild narrowing of the exit foramina. WBC Scan Nuclear Medicine 12/21/19 11:38 IMPRESSION: Normal tagged white cell scan. No evidence of inflammation or infection. Plan Plan of Treatment: At this point the patient can be discharged home on activity as tolerated basis. Plan will be to follow-up with Dr. Mera and [facility] for surgery for further discussions about the etiology of his pain and potential therapeutic interventions. Stroke Is this a Stroke Patient?: No Stroke Pt being discharged on Anti-thrombolytic therapy?: Yes Acute Heart Failure - Is this a Heart Failure Patient?: No
== END 2019-12-22 12:44 | disposition home or self-care (01) | DRG 556 ==
LOC: ER 22:34 → UNDOADMIN 12-15 08:45 → EH 12-15 08:45 → 4S 12-15 10:05
PROVIDERS: ADMIT Orthopaedic Surgery; ATTEND Orthopaedic Surgery
PROC: 0S993ZX Drainage of Right Hip Joint, Percutaneous Approach, Diagnostic (ICD-10-PCS; principal; 2019-12-15)
PROC: 3E0U3BZ Introduction of Anesthetic Agent into Joints, Percutaneous Approach (ICD-10-PCS; 2019-12-15)
DX: M25.551 Pain in right hip (principal); G89.29 Other chronic pain; Z96.641 Presence of right artificial hip joint; I10 Essential (primary) hypertension; M51.36 Other intervertebral disc degeneration, lumbar region; K59.00 Constipation, unspecified; Z90.49 Acquired absence of other specified parts of digestive tract
CPT/HCPCS: 20610; 36415; 72148; 72192; 77002; 78315; 78802; 80048; 80053; 80202; 81001; 82565; 85025; 85652; 86140; 87070; 87075; 87205; 96361; 96374; 96376; 99285; A9521; A9561; J1040; J1170; J3370; J3490; J7040; J7060; Q9969; S0119

== ENCOUNTER → 2020-01-08 | Outpatient (CLI) | payer BC ==
[~2020-01-08] MED LIST: BUPIVACAINE INJ/PF LIPOSOME/PF 266 MG/20 ML SDV INJ PRN; CEFAZOLIN INJ 1 GM VIAL IV PRN; DEXAMETHASONE SOD PHOSPHATE INJ 4 MG/1 ML VIAL ONE; FENTANYL CITRATE INJ/PF 100 MCG/2 ML AMPUL ONE; IBUPROFEN 800 MG in NORMAL SALINE 250 ML IV PRN; LIDOCAINE 0.5% INJ-PF (5 MG/ML) 50 ML SDV SUBCUT PRN; MIDAZOLAM 2 MG/2 ML INJ ONE; ONDANSETRON HCL INJ/PF 4 MG/2 ML SDV ONE; OXYCODONE HCL SR 10 MG TABLET PO PRN; PANTOPRAZOLE SODIUM 20 MG TABLET.DR PO PRN; PROPOFOL INJ 200 MG/20 ML VIAL IV ONE; RINGERS SOLUTION,LACTATED 1,000 ML IV PRN; TRANEXAMIC ACID INJ/PF 1,000 MG/10 ML SDV ONE; VANCOMYCIN HCL 1,000 MG in DEXTROSE 5%-WATER 250 ML IV PRN
--- NOTE | 2020-01-08 18:18 | EKG REPORT ---
SEVERITY:- ABNORMAL ECG - SINUS TACHYCARDIA RBBB AND LPFB : Confirmed by: Trey Zepeda 08-Jan-2020 18:16:45
== END ==
LOC: OD 10:02 → EDSTATUS 01-11 12:30
PROVIDERS: ATTEND Orthopaedic Surgery
DX: Z01.810 Encounter for preprocedural cardiovascular examination (principal); M25.551 Pain in right hip
CPT/HCPCS: 93005; 93010; J1100; J1741; J2250; J2405; J2704; J3010; J3370; J3490; J7050; J7060

== ENCOUNTER → 2020-01-21 | Outpatient (CLI) | payer BC ==
[2020-01-21 12:08] LABS: ABSOLUTE EOSINOPHILS # (AUTO) 0.1 10^3/uL (0.0-0.6); ABSOLUTE LYMPHOCYTES (AUTO) 2.2 10^3/uL (0.5-4.7); ABSOLUTE MONOCYTES (AUTO) 0.8 10^3/uL (0.1-1.4); ABSOLUTE NEUT (AUTO) 6.1 10^3/uL (1.7-8.2); BASOPHILS % (AUTO) 0.5 % (0-2); EOSINOPHILS % (AUTO) 0.9 % (0-6); HEMATOCRIT 44.5 % (37.9-51.0); HEMOGLOBIN 14.6 g/dL (13.5-17.0); LYMPHOCYTES % (AUTO) 23.9 % (13-45); MEAN CORPUSCULAR HEMOGLOBIN 28.7 pg (27.0-33.4); MEAN CORPUSCULAR HGB CONC 32.8 g/dL (32.0-36.0); MEAN CORPUSCULAR VOLUME 87 fl (80-97); MONOCYTES % (AUTO) 8.8 % (3-13); PLATELET COUNT 292 10^3/uL (150-450); RED BLOOD COUNT 5.09 10^6/uL (4.35-5.55); RED CELL DISTRIBUTION WIDTH 13.5 % (11.5-14.0); SEGMENTED NEUTROPHILS % (AUTO) 65.9 % (42-78); TOTAL CELLS COUNTED % (AUTO) 100 %; WHITE BLOOD COUNT 9.3 10^3/uL (4.0-10.5)
[2020-01-21 12:49] LABS: ERYTHROCYTE SEDIMENTATION RATE 31 mm/hr (0-20)
== END ==
LOC: OD 11:12
PROVIDERS: ATTEND Pain Medicine Interventional Pain Medicine
DX: Z51.81 Encounter for therapeutic drug level monitoring (principal); Z79.891 Long term (current) use of opiate analgesic
CPT/HCPCS: 36415; 85025; 85652; 86140

== ENCOUNTER → 2020-02-29 | Outpatient (CLI) | payer BC | LOC: OD 11:16 | PROVIDERS: ATTEND Orthopaedic Surgery | DX: Z01.810 Encounter for preprocedural cardiovascular examination (principal) ==

== ENCOUNTER 2020-03-07 05:31 | Inpatient (IN) | payer BC ==
[2020-03-02 12:57] LABS: ABSOLUTE EOSINOPHILS # (AUTO) 0.1 10^3/uL (0.0-0.6); ABSOLUTE LYMPHOCYTES (AUTO) 2.1 10^3/uL (0.5-4.7); ABSOLUTE MONOCYTES (AUTO) 0.6 10^3/uL (0.1-1.4); BASOPHILS % (AUTO) 0.5 % (0-2); EOSINOPHILS % (AUTO) 0.7 % (0-6); HEMATOCRIT 42.2 % (37.9-51.0); HEMOGLOBIN 14.3 g/dL (13.5-17.0); LYMPHOCYTES % (AUTO) 23.5 % (13-45); MEAN CORPUSCULAR HEMOGLOBIN 29.6 pg (27.0-33.4); MEAN CORPUSCULAR HGB CONC 33.9 g/dL (32.0-36.0); MEAN CORPUSCULAR VOLUME 87 fl (80-97); MONOCYTES % (AUTO) 7.2 % (3-13); PLATELET COUNT 315 10^3/uL (150-450); RED BLOOD COUNT 4.84 10^6/uL (4.35-5.55); RED CELL DISTRIBUTION WIDTH 14.2 % (11.5-14.0); SEGMENTED NEUTROPHILS % (AUTO) 68.1 % (42-78); TOTAL CELLS COUNTED % (AUTO) 100 %; WHITE BLOOD COUNT 8.7 10^3/uL (4.0-10.5)
[2020-03-02 13:04] LABS: AMORPHOUS SEDIMENT,URINE TRACE /HPF; APPEARANCE,URINE CLOUDY; BILIRUBIN,URINE NEGATIVE (NEGATIVE); COLOR,URINE YELLOW; GLUCOSE, URINE NEGATIVE (NEGATIVE); KETONES,URINE NEGATIVE (NEGATIVE); LEUKOCYTE ESTERASE,URINE NEGATIVE (NEGATIVE); NITRITE,URINE NEGATIVE (NEGATIVE); PROTEIN,URINE NEGATIVE (NEGATIVE); URINE SPECIFIC GRAVITY 1.017; UROBILINOGEN,URINE NEGATIVE mg/dL (<2.0)
[2020-03-02 13:18] LABS: ANION GAP 10 (5-19); BLOOD UREA NITROGEN 15 mg/dL (7-20); CALCIUM 9.7 mg/dL (8.4-10.2); CARBON DIOXIDE 30 mmol/L (22-30); CHLORIDE 99 mmol/L (98-107); GLUCOSE 96 mg/dL (75-110); POTASSIUM 4.5 mmol/L (3.6-5.0)
--- NOTE | 2020-03-02 13:38 | RADIOLOGY REPORT (SQ) ---
EXAM DESCRIPTION: CHEST PA/LATERAL IMAGES COMPLETED DATE/TIME: 03/02/2020 1:11 pm REASON FOR STUDY: PRE-OP COMPARISON: 09/29/2019 EXAM PARAMETERS: NUMBER OF VIEWS: two views TECHNIQUE: Digital Frontal and Lateral radiographic views of the chest acquired. RADIATION DOSE: NA LIMITATIONS: none FINDINGS: LUNGS AND PLEURA: No opacities, masses or pneumothorax. No pleural effusion. MEDIASTINUM AND HILAR STRUCTURES: No masses or contour abnormalities. HEART AND VASCULAR STRUCTURES: Heart normal size. No evidence for failure. BONES: No acute findings. HARDWARE: None in the chest. OTHER: No other significant finding. IMPRESSION: NO SIGNIFICANT RADIOGRAPHIC FINDING IN THE CHEST. TECHNICAL DOCUMENTATION: JOB ID: [id number] 2010 [employer]- All Rights Reserved Reading location - IP/workstation name: [email or web address]
[~2020-03-07 05:31] MED LIST changes: -DEXAMETHASONE SOD PHOSPHATE INJ 4 MG/1 ML VIAL ONE; -FENTANYL CITRATE INJ/PF 100 MCG/2 ML AMPUL ONE; +LACTATED RINGERS 1000 ML IV PRN; -MIDAZOLAM 2 MG/2 ML INJ ONE; -ONDANSETRON HCL INJ/PF 4 MG/2 ML SDV ONE; -PROPOFOL INJ 200 MG/20 ML VIAL IV ONE; -RINGERS SOLUTION,LACTATED 1,000 ML IV PRN; -TRANEXAMIC ACID INJ/PF 1,000 MG/10 ML SDV ONE
[2020-03-07] MEDS ORDERED: OXYCODONE HCL SR 10 MG TABLET PO ONE (05:46)
[2020-03-07] MEDS ORDERED: CEFAZOLIN INJ 1 GM VIAL ONE (05:46)
[2020-03-07] MEDS ORDERED: KETAMINE HCL INJ 500 MG/10 ML VIAL ONE (06:21)
[2020-03-07] MEDS ORDERED: FENTANYL CITRATE INJ/PF 100 MCG/2 ML AMPUL ONE (06:22)
[2020-03-07] MEDS ORDERED: MIDAZOLAM 2 MG/2 ML INJ ONE (06:22)
[2020-03-07] MEDS ORDERED: PROPOFOL INJ 200 MG/20 ML VIAL IV ONE (06:22)
[2020-03-07] MEDS ORDERED: TRANEXAMIC ACID INJ/PF 1,000 MG/10 ML SDV ONE ×2 (06:22→10:11)
[2020-03-07] MEDS ORDERED: LIDOCAINE 0.5% INJ-PF (5 MG/ML) 50 ML SDV ONE (06:37)
[2020-03-07] MEDS ORDERED: PANTOPRAZOLE SODIUM 20 MG TABLET.DR PO ONE (06:43)
[2020-03-07] MEDS ORDERED: THROMBIN (BOVINE) TOPICAL 20000 UNIT VIAL ONE (07:20)
[2020-03-07] MEDS ORDERED: DIPHENHYDRAMINE HCL 50 MG/ML VIAL IV PRN (08:14)
[2020-03-07] MEDS ORDERED: MEPERIDINE HCL/PF INJ 25 MG/1 ML DISP.SYRIN IV PRN (08:14)
[2020-03-07] MEDS ORDERED: FENTANYL CITRATE INJ/PF 100 MCG/2 ML AMPUL IV PRN ×3 (08:14)
[2020-03-07] MEDS ORDERED: PROMETHAZINE HCL INJ 25 MG/1 ML VIAL IV PRN ×2 (08:14)
[2020-03-07] MEDS ORDERED: MORPHINE SULFATE 10 MG/ML INJ IV PRN (08:14)
[2020-03-07] MEDS: BUPIVACAINE INJ/PF LIPOSOME/PF 266 MG/20 ML SDV ONE ×2 (09:25→09:50)
[2020-03-07] MEDS ORDERED: RINGERS SOLUTION,LACTATED 1,000 ML IV PRN (09:52)
[2020-03-07] MEDS ORDERED: MAG HYDROX/AL HYDROX/SIMETH SUSP 30 ML UDCUP PO PRN (09:52)
[2020-03-07] MEDS ORDERED: ONDANSETRON HCL INJ/PF 4 MG/2 ML SDV IV PRN (09:52)
[2020-03-07] MEDS ORDERED: ACETAMINOPHEN 325 MG TABLET PO PRN (09:52)
[2020-03-07] MEDS ORDERED: ONDANSETRON 4 MG TAB.RAPDIS PO PRN (09:52)
--- NOTE | 2020-03-07 10:02 | Operative Report ---
Operative Report DATE OF SURGERY: 03/07/20 PREOPERATIVE DIAGNOSIS: Failed right hip arthroplasty OPERATION: Revision right hip arthroplasty. Sciatic neural lysis. ORIF right femur SURGEON: JOHN MCCLURE ANESTHESIA: GA TISSUE REMOVED OR ALTERED: Cultures to microbiology. Tissue to pathology. Implants to CSS COMPLICATIONS: Intraoperative femur fracture ESTIMATED BLOOD LOSS: 850 PROCEDURE: Implants used: Femur: Shankar modular raised mu-ism stem 20 mm x 155 mm, 25 mm standard proximal body, 28 mm head -4 neck Biomet dual mobility cup 44 mm Acetabular shell:[As above] Liner:[] Head:[] The patient is placed in a left lateral decubitus position on the operating table. The right lower extremity and hindquarter is prepped and draped in a sterile fashion. A curvilinear incision was made over the greater trochanter a posterior approach the hip was taken. Upon entering the area of the hip capsule tissue was sent for culture as well as frozen section. Frozen section is returned as consistent with focal acute inflammation. While I respect the pathologist interpretation of the tissue my clinical intuition is that this was not an infected case but of the case of a loose implant. Therefore decision was made to proceed with a revision as opposed to a resection arthroplasty. In the process of attempting dislocation of the femoral head small femoral fracture is encountered. Attention was next turned to the acetabulum. Soft tissues cleared off the acetabulum using electrocautery. Assisting acetabular liner was removed using an osteotome. The central plug is removed from the existing shell. Subsequently the dual mobility liner is impacted into position. Attention was next turned to the femur. Existing femoral stem is removed by disimpaction. It is grossly loose. Next a canal finder was placed down the femoral canal to align the proximal and distal aspects of the fracture. It is reduced using a bruise clamp. The cables were placed around the fracture site which provides excellent stability. The femur that is continuing to be reamed using conical reamers until 20 mm reamer is seated. At this point intraoperative radiographs are obtained to look at both the fracture reduction as well as the implant size. Fracture reduction appears anatomic. Implant size appears appropriate. All trial implants were removed. The wound is irrigated with pulsed lavage. Standard 155 mm x 20 mm modular mu-ism stem stem is impacted into the femoral canal. Proximal femur is then prepared using cylindrical reamers for the proximal body. A trial reduction was again performed with a 44 mm head with a 25 mm proximal body +0 neck extension. This provides stability as well as re-creates preoperative leg length. Trial implants were removed. The final 25 mm tunnel body is impacted onto the stem and approximately 15 to 20 degrees of anteversion. Secured with a screw and a torque wrench. The dual mobility construct is assembled onto the trunnion. The hip is reduced. Is again irrigated with 3 L normal sounds and a 9. The wound is then closed in layers interrupted Vicryl followed by Dermabond tape. The patient is returned to the PACU in satisfactory condition.
[2020-03-07] MEDS: FENTANYL CITRATE INJ/PF 100 MCG/2 ML AMPUL ONE ×2 (10:42→10:47)
[2020-03-07] MEDS: MORPHINE SULFATE 10 MG/ML INJ ONE ×3 (10:50→11:00)
--- NOTE | 2020-03-07 10:53 | RADIOLOGY REPORT (SQ) ---
EXAM DESCRIPTION: HIP IN OPERATING RM IMAGES COMPLETED DATE/TIME: 03/07/2020 10:24 am REASON FOR STUDY: RIGHT HIP REVISION ASSISTED WITH FLUORO IN OR M25.551 PAIN IN RIGHT HIP COMPARISON: Outside films 02/16/2020 FLUOROSCOPY TIME: 0.1 minute Single C-arm imagesaved to PACS. TECHNIQUE: Intra-operative images acquired during surgical procedure to evaluate progress. NUMBER OF IMAGES: Single C-arm image LIMITATIONS: None. FINDINGS: Intra procedural imaging and fluoro. Please see the operative report IMPRESSION: Intra procedural imaging and fluoro. COMMENT: Quality ID [id number]: Final reports for procedures using fluoroscopy that document radiation exp osure indices, or exposure time and number of fluorographic images (if radiation exposure indices are not available) Please consult full operative report of the attending physician for description of the procedure. TECHNICAL DOCUMENTATION: JOB ID: [id number] 2010 [employer]- All Rights Reserved Reading location - IP/workstation name: [email or web address]
[2020-03-07] MEDS ORDERED: TRANEXAMIC ACID INJ/PF 1,000 MG/10 ML SDV IV ONE (11:00)
[2020-03-07] MEDS ORDERED: OXYCODONE HCL SR 10 MG TABLET PO SCH (11:00)
[2020-03-07] MEDS: HYDROMORPHONE HCL INJ/PF 2 MG/ML AMPULE ONE ×4 (11:05→11:20)
--- NOTE | 2020-03-07 11:26 | RADIOLOGY REPORT (SQ) ---
EXAM DESCRIPTION: PELVIS AP IMAGES COMPLETED DATE/TIME: 03/07/2020 11:11 am REASON FOR STUDY: Post Op Long Cassette in PACU M25.551 PAIN IN RIGHT HIP COMPARISON: None. NUMBER OF VIEWS: One view TECHNIQUE: An AP view of the pelvis, and AP and lateral views of the right hip were obtained. LIMITATIONS: None. FINDINGS: MINERALIZATION: Osteopenia. HIPS: Status post revision of the right ALLEN hardware with replacement of the femoral component and pl acement of 3 cerclage wires around the proximal right femur. The hardware is intact and in anatomic alignment. There is no periprosthetic fracture. PELVIS AND SACRUM: The sacrum is obscured by overlying bowel. PUBIS AND ISCHIUM: The ilioischial and iliopectineal lines are intact. There is no diastasis of the pubic symphysis. LOWER LUMBAR SPINE: The lumbar spine is partially obscured by overlying bowel. SOFT TISSUES: Subcutaneous emphysema lateral to the proximal right femur. OTHER: Osteoarthrosis of the left femoroacetabular joint. IMPRESSION: Status post revision of the right ALLEN hardware with replacement of the femoral component and placement of 3 cerclage wires around the proximal right femur. The hardware is intact and in an atomic alignment. There is no periprosthetic fracture. COMMENT: Pelvic fractures are often occult on plain radiographs. If strong clinical suspicion for f racture, recommend CT or MR. TECHNICAL DOCUMENTATION: JOB ID: [id number] 2010 [employer]- All Rights Reserved Reading location - IP/workstation name: [email or web address]
[2020-03-07] MEDS: OXYCODONE HCL IR 5 MG TABLET PO PRN ×2 (12:25→18:56)
[2020-03-07] MEDS ORDERED: PHENYLEPHRINE HCL INJ/PF 10 MG/1 ML SDV ONE (14:19)
[2020-03-07] MEDS ORDERED: DEXAMETHASONE SOD PHOSPHATE INJ 4 MG/1 ML VIAL ONE (14:19)
[2020-03-07] MEDS ORDERED: ONDANSETRON HCL INJ/PF 4 MG/2 ML SDV ONE (14:19)
[2020-03-07] MEDS: CARISOPRODOL 350 MG TABLET PO SCH ×3 (14:41→21:32)
[2020-03-07] MEDS: SENNOSIDES/DOCUSATE 8.6-50 MG 1 EACH TABLET PO SCH (17:26)
[2020-03-07] MEDS: OXYCODONE HCL SR 10 MG TABLET PO SCH (17:27)
[2020-03-07] MEDS: AMITRIPTYLINE HCL 50 MG TABLET PO SCH (21:32)
[2020-03-07] MEDS: PREGABALIN 75 MG CAPSULE PO SCH (21:32)
[2020-03-07] MEDS ORDERED: VANCOMYCIN HCL 1,000 MG in DEXTROSE 5%-WATER 250 ML IV ONE (22:00)
[2020-03-07] MEDS: ZOLPIDEM TARTRATE 5 MG TABLET PO PRN (23:39)
[2020-03-08] MEDS: OXYCODONE HCL IR 5 MG TABLET PO PRN ×3 (01:05→20:18)
[2020-03-08] MEDS: PANTOPRAZOLE SODIUM 40 MG TABLET.DR PO SCH (05:10)
[2020-03-08] MEDS: OXYCODONE HCL SR 10 MG TABLET PO SCH ×2 (05:10→17:27)
[2020-03-08 06:10] LABS: HEMATOCRIT 31.6 % (37.9-51.0); HEMOGLOBIN 10.6 g/dL (13.5-17.0); MEAN CORPUSCULAR HEMOGLOBIN 29.2 pg (27.0-33.4); MEAN CORPUSCULAR HGB CONC 33.5 g/dL (32.0-36.0); MEAN CORPUSCULAR VOLUME 87 fl (80-97); PLATELET COUNT 274 10^3/uL (150-450); RED BLOOD COUNT 3.61 10^6/uL (4.35-5.55); RED CELL DISTRIBUTION WIDTH 14.2 % (11.5-14.0); WHITE BLOOD COUNT 14.1 10^3/uL (4.0-10.5)
[2020-03-08 06:38] LABS: ANION GAP 9 (5-19); BLOOD UREA NITROGEN 20 mg/dL (7-20); CALCIUM 8.7 mg/dL (8.4-10.2); CARBON DIOXIDE 24 mmol/L (22-30); CHLORIDE 101 mmol/L (98-107); GLUCOSE 131 mg/dL (75-110); POTASSIUM 4.7 mmol/L (3.6-5.0)
--- NOTE | 2020-03-08 07:13 | PDOC PROGRESS REPORT ---
Subjective Progress Note for:: 03/08/20 Reason For Visit: M25.551 PAIN IN RIGHT HIP, FAILED RIGHT HIP 59-year-old white male now postop day 1 status post right hip revision arthroplasty complicated by intraoperative femur fracture. Patient ambulated with physical therapy yesterday. Complaining of sciatic pain this morning. Physical Exam Vital Signs: Temp Pulse Resp BP Pulse Ox 37.8 C 121 H 18 128/56 H 95 03/08/20 00:30 03/08/20 00:30 03/08/20 00:30 03/08/20 00:30 03/08/20 00:30 Intake & Output 03/07/20 03/08/20 03/09/20 06:59 06:59 06:59 Intake Total 0 35740 Output Total 7668 Balance 0 2630 Weight 135.9 kg Physical Exam: Obese middle-aged white male lying in bed. Patient is alert, oriented, and appropriate. General appearance: PRESENT: obese Head exam: PRESENT: normocephalic Respiratory exam: PRESENT: unlabored Cardiovascular exam: PRESENT: RRR Vascular exam: PRESENT: normal capillary refill GI/Abdominal exam: PRESENT: soft Rectal exam: PRESENT: deferred Extremities exam: PRESENT: other - Leg lengths equal. Distal neurovascular examination is intact. Central portion of the dressing with fresh drainage. Neurological exam: PRESENT: alert, awake, oriented to person, oriented to place, oriented to time, oriented to situation. ABSENT: motor sensory deficit Psychiatric exam: PRESENT: appropriate affect, normal mood. ABSENT: homicidal ideation, suicidal ideation Results Laboratory Results: 03/08/20 06:02 03/08/20 06:02 03/08/20 03/08/20 06:02 06:02 WBC 14.1 H RBC 3.61 L Hgb 10.6 L Hct 31.6 L MCV 87 MCH 29.2 MCHC 33.5 RDW 14.2 H Plt Count 274 Sodium 133.6 L Potassium 4.7 Chloride 101 Carbon Dioxide 24 Anion Gap 9 BUN 20 Creatinine 0.65 Est GFR ( Amer) > 60 Glucose 131 H Calcium 8.7 Impressions: Chest X-Ray 03/02/20 00:00 IMPRESSION: NO SIGNIFICANT RADIOGRAPHIC FINDING IN THE CHEST. Hip X-Ray 03/07/20 00:00 IMPRESSION: Intra procedural imaging and fluoro. Pelvis X-Ray 03/07/20 09:54 IMPRESSION: Status post revision of the right ALLEN hardware with replacement of the femoral component and placement of 3 cerclage wires around the proximal right femur. The hardware is intact and in anatomic alignment. There is no periprosthetic fracture. Status: Imported from PACS Assessment & Plan - Diagnosis (1) Chronic right hip pain Is this a current diagnosis for this admission?: Yes Plan: Mobilize with physical therapy on a touchdown weightbearing restriction. Anticipate discharge home with home health services and DME once functional status permits. - Time Time Spent with patient: 15-24 minutes Anticipated discharge: Home with Homehealth Within: within 24 hours
[2020-03-08] MEDS: CARISOPRODOL 350 MG TABLET PO SCH ×4 (09:58→21:12)
[2020-03-08] MEDS: PREGABALIN 75 MG CAPSULE PO SCH ×2 (09:58→21:12)
[2020-03-08] MEDS: SENNOSIDES/DOCUSATE 8.6-50 MG 1 EACH TABLET PO SCH ×2 (09:58→17:27)
[2020-03-08] MEDS: PRENATAL VITAMIN W DHA CAPSULE PO SCH (09:58)
[2020-03-08] MEDS: LISINOPRIL 10 MG TABLET PO SCH (09:58)
[2020-03-08] MEDS: AMITRIPTYLINE HCL 50 MG TABLET PO SCH (21:12)
[2020-03-08] MEDS: ZOLPIDEM TARTRATE 5 MG TABLET PO PRN (21:13)
[2020-03-09] MEDS: PANTOPRAZOLE SODIUM 40 MG TABLET.DR PO SCH (05:01)
[2020-03-09] MEDS: OXYCODONE HCL SR 10 MG TABLET PO SCH ×2 (05:01→18:40)
[2020-03-09 05:25] LABS: HEMATOCRIT 26.3 % (37.9-51.0); MEAN CORPUSCULAR HEMOGLOBIN 29.9 pg (27.0-33.4); MEAN CORPUSCULAR HGB CONC 34.3 g/dL (32.0-36.0); MEAN CORPUSCULAR VOLUME 87 fl (80-97); PLATELET COUNT 222 10^3/uL (150-450); RED BLOOD COUNT 3.01 10^6/uL (4.35-5.55); RED CELL DISTRIBUTION WIDTH 14.2 % (11.5-14.0); WHITE BLOOD COUNT 14.3 10^3/uL (4.0-10.5)
--- NOTE | 2020-03-09 06:08 | PDOC PROGRESS REPORT ---
Subjective Progress Note for:: 03/09/20 Reason For Visit: M25.551 PAIN IN RIGHT HIP, FAILED RIGHT HIP 59-year-old white male now postop day 2 status post right hip revision arthroplasty. Patient is making some progress with physical therapy this is slow because of his extreme deconditioning and his body habitus. Physical Exam Vital Signs: Temp Pulse Resp BP Pulse Ox 37.2 C 112 H 16 99/53 L 100 03/09/20 03:48 03/09/20 03:48 03/09/20 03:48 03/09/20 03:48 03/09/20 03:48 Intake & Output 03/07/20 03/08/20 03/09/20 06:59 06:59 06:59 Intake Total 0 68461 2216 Output Total 7668 950 Balance 0 2630 1266 Weight 135.9 kg General appearance: PRESENT: no acute distress, obese Head exam: PRESENT: normocephalic Respiratory exam: PRESENT: unlabored Cardiovascular exam: PRESENT: RRR Vascular exam: PRESENT: normal capillary refill GI/Abdominal exam: PRESENT: soft Rectal exam: PRESENT: deferred Extremities exam: PRESENT: other - Right hip dressing with some drainage and has been reinforced. Leg lengths are equal. Distal neurovascular examination is intact. Results Laboratory Results: 03/09/20 04:56 03/08/20 06:02 03/08/20 03/08/20 03/09/20 06:02 06:02 04:56 WBC 14.1 H 14.3 H RBC 3.61 L 3.01 L Hgb 10.6 L 9.0 L Hct 31.6 L 26.3 L MCV 87 87 MCH 29.2 29.9 MCHC 33.5 34.3 RDW 14.2 H 14.2 H Plt Count 274 222 Sodium 133.6 L Potassium 4.7 Chloride 101 Carbon Dioxide 24 Anion Gap 9 BUN 20 Creatinine 0.65 Est GFR ( Amer) > 60 Glucose 131 H Calcium 8.7 Impressions: Chest X-Ray 03/02/20 00:00 IMPRESSION: NO SIGNIFICANT RADIOGRAPHIC FINDING IN THE CHEST. Hip X-Ray 03/07/20 00:00 IMPRESSION: Intra procedural imaging and fluoro. Pelvis X-Ray 03/07/20 09:54 IMPRESSION: Status post revision of the right ALLEN hardware with replacement of the femoral component and placement of 3 cerclage wires around the proximal right femur. The hardware is intact and in anatomic alignment. There is no periprosthetic fracture. Status: Imported from PACS Assessment & Plan - Diagnosis (1) Chronic right hip pain Is this a current diagnosis for this admission?: Yes Plan: Mobilize with physical therapy on touchdown weightbearing restriction on the right lower extremity. Nursing can change the right hip dressing as needed. An ticipate discharge home with home health services once functional capacity permits. - Time Time Spent with patient: 15-24 minutes Anticipated discharge: Home with Homehealth Within: Other
[2020-03-09] MEDS: SENNOSIDES/DOCUSATE 8.6-50 MG 1 EACH TABLET PO SCH ×2 (09:02→18:40)
[2020-03-09] MEDS: CARISOPRODOL 350 MG TABLET PO SCH ×4 (09:02→22:44)
[2020-03-09] MEDS: PRENATAL VITAMIN W DHA CAPSULE PO SCH (09:02)
[2020-03-09] MEDS: PREGABALIN 75 MG CAPSULE PO SCH ×2 (09:02→22:44)
[2020-03-09] MEDS: LISINOPRIL 10 MG TABLET PO SCH (09:03)
[2020-03-09] MEDS ORDERED: TRANEXAMIC ACID INJ/PF 1,000 MG/10 ML SDV IV ONE (13:15)
[2020-03-09] MEDS: ASPIRIN 81 MG TABLET, ENT COATED PO SCH (13:39)
[2020-03-09] MEDS: VANCOMYCIN HCL 1,500 MG in DEXTROSE 5%-WATER 250 ML IV SCH ×2 (13:47→22:45)
[2020-03-09] MEDS: AMITRIPTYLINE HCL 50 MG TABLET PO SCH (22:44)
[2020-03-10 06:04] LABS: HEMATOCRIT 24.8 % (37.9-51.0); HEMOGLOBIN 8.5 g/dL (13.5-17.0); MEAN CORPUSCULAR HEMOGLOBIN 30.2 pg (27.0-33.4); MEAN CORPUSCULAR HGB CONC 34.4 g/dL (32.0-36.0); MEAN CORPUSCULAR VOLUME 88 fl (80-97); PLATELET COUNT 216 10^3/uL (150-450); RED BLOOD COUNT 2.83 10^6/uL (4.35-5.55); RED CELL DISTRIBUTION WIDTH 13.8 % (11.5-14.0); WHITE BLOOD COUNT 9.7 10^3/uL (4.0-10.5)
[2020-03-10] MEDS: PANTOPRAZOLE SODIUM 40 MG TABLET.DR PO SCH (06:23)
[2020-03-10] MEDS: OXYCODONE HCL SR 10 MG TABLET PO SCH (06:23)
[2020-03-10] MEDS: VANCOMYCIN HCL 1,500 MG in DEXTROSE 5%-WATER 250 ML IV SCH (06:24)
--- NOTE | 2020-03-10 06:49 | PDOC DISCHARGE SUMMARY ---
Impression - Admit/DC Date/PCP Admission Date/Primary Care Provider: 03/07/20 05:31 CHRIS SHAY MD Discharge Date: 03/10/20 - Discharge Diagnosis (1) Chronic right hip pain Is this a current diagnosis for this admission?: Yes - Additional Information Resuscitation Status: Full Code Discharge Diet: Regular Discharge Activity: Balance Activity w/Rest, No tub bath Referrals: JOHN MCCLURE MD [ACTIVE STAFF] - 03/15/20 9:30 am Home Medications: Lisinopril 10 mg PO DAILY 08/07/12 Carisoprodol [Soma 350 Mg Tablet] 350 mg PO QID 06/04/13 Amitriptyline HCl [Elavil 50 Mg Tablet] 50 mg PO QHS 10/05/19 Hydrocodone/Acetaminophen [Lorcet Hd 10-325 mg Tablet] 1 tab PO ASDIR PRN 01/06/20 History of Present Illiness History of Present Illness: GRAHAM RAMIREZ is a 59 year old male 59-year-old white male 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 Hospital Course Hospital Course: Patient is admitted through the operating where he undergoes a right hip revision arthroplasty complicated by an intraoperative femur fracture. Patient is returned to floor in satisfactory condition. He is mobilized with physical therapy on touchdown weightbearing basis. Because of almost 12 months of deconditioning return recovery of the patient's functional level is slow but does take place Celebrex several days. Dressing is changed on postop day 2 and remains clean dry and intact since that time. Physical Exam Vital Signs: Temp Pulse Resp BP Pulse Ox 36.9 C 125 H 18 121/59 L 100 03/10/20 01:00 03/10/20 01:00 03/10/20 01:00 03/10/20 01:00 03/10/20 01:00 Intake & Output 03/08/20 03/09/20 03/10/20 06:59 06:59 06:59 Intake Total 88487 2216 1670 Output Total 5426 362 800 Balance 2630 1266 870 Weight 135.9 kg 135.9 kg 147.2 kg General appearance: PRESENT: no acute distress, mild distress, obese Respiratory exam: PRESENT: unlabored Cardiovascular exam: PRESENT: RRR Pulses: PRESENT: +1 pedal pulses bilateral GI/Abdominal exam: PRESENT: soft Rectal exam: PRESENT: deferred Musculoskeletal exam: PRESENT: other - Right hip dressing clean dry and intact Neurological exam: PRESENT: alert, awake, oriented to person, oriented to place, oriented to time, oriented to situation. ABSENT: motor sensory deficit Results Laboratory Results: WBC 9.7 10^3/uL (4.0-10.5) 03/10/20 05:42 RBC 2.83 10^6/uL (4.35-5.55) L 03/10/20 05:42 Hgb 8.5 g/dL (13.5-17.0) L 03/10/20 05:42 Hct 24.8 % (37.9-51.0) L 03/10/20 05:42 MCV 88 fl (80-97) 03/10/20 05:42 MCH 30.2 pg (27.0-33.4) 03/10/20 05:42 MCHC 34.4 g/dL (32.0-36.0) 03/10/20 05:42 RDW 13.8 % (11.5-14.0) 03/10/20 05:42 Plt Count 216 10^3/uL (150-450) 03/10/20 05:42 Lymph % (Auto) 23.5 % (13-45) 03/02/20 12:04 [place] % (Auto) 7.2 % (3-13) 03/02/20 12:04 Eos % (Auto) 0.7 % (0-6) 03/02/20 12:04 Baso % (Auto) 0.5 % (0-2) 03/02/20 12:04 Absolute Neuts (auto) 6.0 10^3/uL (1.7-8.2) 03/02/20 12:04 Absolute Lymphs (auto) 2.1 10^3/uL (0.5-4.7) 03/02/20 12:04 Absolute Monos (auto) 0.6 10^3/uL (0.1-1.4) 03/02/20 12:04 Absolute Eos (auto) 0.1 10^3/uL (0.0-0.6) 03/02/20 12:04 Absolute Basos (auto) 0.0 10^3/uL (0.0-0.2) 03/02/20 12:04 Seg Neutrophils % 68.1 % (42-78) 03/02/20 12:04 Sodium 133.6 mmol/L (137-145) L 03/08/20 06:02 Potassium 4.7 mmol/L (3.6-5.0) 03/08/20 06:02 Chloride 101 mmol/L (98-107) 03/08/20 06:02 Carbon Dioxide 24 mmol/L (22-30) 03/08/20 06:02 Anion Gap 9 (5-19) 03/08/20 06:02 BUN 20 mg/dL (7-20) 03/08/20 06:02 Creatinine 0.65 mg/dL (0.52-1.25) 03/08/20 06:02 Est GFR ( Amer) > 60 (>60) 03/08/20 06:02 Est GFR (MDRD) Non-Af > 60 (>60) 03/08/20 06:02 Glucose 131 mg/dL (75-110) H 03/08/20 06:02 Calcium 8.7 mg/dL (8.4-10.2) 03/08/20 06:02 Urine Color YELLOW 03/02/20 12:05 Urine Appearance CLOUDY 03/02/20 12:05 Urine pH 7.0 (5.0-9.0) 03/02/20 12:05 Ur Specific [place] 1.017 03/02/20 12:05 Urine Protein NEGATIVE mg/dL (NEGATIVE) 03/02/20 12:05 Urine Glucose (UA) NEGATIVE mg/dL (NEGATIVE) 03/02/20 12:05 Urine Ketones NEGATIVE mg/dL (NEGATIVE) 03/02/20 12:05 Urine Blood NEGATIVE (NEGATIVE) 03/02/20 12:05 Urine Nitrite NEGATIVE (NEGATIVE) 03/02/20 12:05 Urine Bilirubin NEGATIVE (NEGATIVE) 03/02/20 12:05 Urine Urobilinogen NEGATIVE mg/dL (<2.0) 03/02/20 12:05 Ur Leukocyte Esterase NEGATIVE (NEGATIVE) 03/02/20 12:05 Amorphous Sediment Auto TRACE /HPF 03/02/20 12:05 Urine Mucus (Auto) RARE /LPF 03/02/20 12:05 Urine Ascorbic Acid NEGATIVE (NEGATIVE) 03/02/20 12:05 COVID-19 Source NASOPHARYNGEAL 03/02/20 12:00 COVID-19 ([place]) NOT DETECTED 03/02/20 12:00 Blood Type A POSITIVE 03/07/20 06:10 Antibody Screen NEGATIVE 03/07/20 06:10 Impressions: Chest X-Ray 03/02/20 00:00 IMPRESSION: NO SIGNIFICANT RADIOGRAPHIC FINDING IN THE CHEST. Hip X-Ray 03/07/20 00:00 IMPRESSION: Intra procedural imaging and fluoro. Pelvis X-Ray 03/07/20 09:54 IMPRESSION: Status post revision of the right ALLEN hardware with replacement of the femoral component and placement of 3 cerclage wires around the proximal right femur. The hardware is intact and in anatomic alignment. There is no periprosthetic fracture. Plan Plan of Treatment: Patient to be discharged home with home health services and DME. Follow-up with Dr. Mcclure and [facility] for surgery on March 15, 2020 Stroke Is this a Stroke Patient?: No Stroke Pt being discharged on Anti-thrombolytic therapy?: Yes Acute Heart Failure - Is this a Heart Failure Patient?: No
[2020-03-10] MEDS: OXYCODONE HCL IR 5 MG TABLET PO PRN (09:06)
[2020-03-10] MEDS: ASPIRIN 81 MG TABLET, ENT COATED PO SCH (09:07)
[2020-03-10] MEDS: LISINOPRIL 10 MG TABLET PO SCH (09:07)
[2020-03-10] MEDS: SENNOSIDES/DOCUSATE 8.6-50 MG 1 EACH TABLET PO SCH (09:07)
[2020-03-10] MEDS: PRENATAL VITAMIN W DHA CAPSULE PO SCH (09:07)
[2020-03-10] MEDS: CARISOPRODOL 350 MG TABLET PO SCH (09:07)
[2020-03-10] MEDS: PREGABALIN 75 MG CAPSULE PO SCH (09:07)
[2020-03-10 12:46] VITALS: BP 110/54
== END 2020-03-10 13:05 | disposition home health service (06) | DRG 467 ==
LOC: INOR 05:31 → 4S 11:57
PROVIDERS: ADMIT Orthopaedic Surgery; ATTEND Orthopaedic Surgery
PROC: 0SP90JZ Removal of Synthetic Substitute from Right Hip Joint, Open Approach (ICD-10-PCS; 2020-03-07)
PROC: 0QS606Z Reposition Right Upper Femur with Intramedullary Internal Fixation Device, Open Approach (ICD-10-PCS; 2020-03-07)
PROC: 0SR90JZ Replacement of Right Hip Joint with Synthetic Substitute, Open Approach (ICD-10-PCS; principal; 2020-03-07 07:30)
DX: T84.030A Mechanical loosening of internal right hip prosthetic joint, initial encounter (principal); M96.89 Other intraoperative and postprocedural complications and disorders of the musculoskeletal system; S72.001A Fracture of unspecified part of neck of right femur, initial encounter for closed fracture; Y83.1 Surgical operation with implant of artificial internal device as the cause of abnormal reaction of the patient, or of later complication, without mention of misadventure at the time of the procedure; I10 Essential (primary) hypertension
CPT/HCPCS: 01215; 36415; 71046; 72170; 80048; 81001; 85025; 85027; 86850; 86900; 86901; 87070; 87075; 87205; 87635; 88305; 88331; 94799; C1776; C9290; J0690; J1100; J1170; J1741; J2250; J2270; J2370; J2405; J2704; J3010; J3370; J3490; J7050; J7060; J7120

== ENCOUNTER → 2020-06-10 | Outpatient (CLI) | payer BC ==
--- NOTE | 2020-06-10 14:33 | RADIOLOGY REPORT (SQ) ---
EXAM DESCRIPTION: MRI LT UPPER JOINT WITHOUT IMAGES COMPLETED DATE/TIME: 06/10/2020 11:37 am REASON FOR STUDY: M25.512 PAIN IN LEFT SHOULDER M25.512 PAIN IN LEFT SHOULDER COMPARISON: None. TECHNIQUE: Non contrasted non arthrogram MRI left shoulder images acquired and stored on PACS. Multi planar imaging to include fat sensitive sequences such as T1, water sensitive sequences such as FST2/ STIR, cartilage sensitive sequences such as FSPD/gradient-echo sequences. LIMITATIONS: None. FINDINGS: BONE MARROW AND CORTEX: No worrisome bone lesions or marrow replacement. No occult fractur es. JOINT OR BURSAL EFFUSION: Physiologic glenohumeral joint fluid. Trace fluid in the subacromial/subde ltoid bursa from bursitis. GLENO-HUMERAL ARTICULATION: Normal alignment. No chondromalacia. No bulky bony spurring ACROMION AND AC JOINT: Type 2 acromion with os acromiale. There is mild undersurface bony spurring narrowing the subacromial space on sagittal image 7. Trace fluid in the subacromial subdeltoid bursa ROTATOR CUFF AND INTERVAL: There is minimal superficial tendinopathy along the distal supra and infra spinatus tendons. No full-thickness tear. subscapularis intact. No rotator interval tear. No rotator interval thickening to suggest adhesive capsulitis. LABRUM AND BICEPS LABRAL COMPLEX: Intact. No labral tear. Intra-articular long-head biceps tendon n ormal. Distal biceps in normal location in bicipital groove. REMAINDER OF LABRUM AND IGHL : No gross tear or paralabral cyst formation. Labral evaluation is less than optimal without joint distention. No thickening of IGHL to suggest adhesive capsulitis. PERIARTICULAR AND ADJACENT SOFT TISSUES: No masses or abnormal nodes. OTHER: No other significant finding. IMPRESSION: Trace fluid in the subacromial/subdeltoid bursa Acromioclavicular joint hypertrophy with bony spurring. Os acromiale. Mild superficial tendinopathy of the distal supra and infraspinatus tendons. No full-thickness rotat or cuff tear TECHNICAL DOCUMENTATION: JOB ID: [id number] 2010 [employer]- All Rights Reserved Reading location - IP/workstation name: [email or web address]
== END ==
LOC: RAD 10:25
PROVIDERS: ATTEND Orthopaedic Surgery Sports Medicine
DX: M25.512 Pain in left shoulder (principal)

== ENCOUNTER → 2020-10-25 | Outpatient (CLI) | payer BC ==
--- NOTE | 2020-10-25 15:03 | RADIOLOGY REPORT (SQ) ---
EXAM DESCRIPTION: MRI RT UPPER JOINT WITHOUT IMAGES COMPLETED DATE/TIME: 10/25/2020 11:09 am REASON FOR STUDY: (M25.511)PAIN IN RIGHT SHOULDER M25.511 PAIN IN RIGHT SHOULDER COMPARISON: None. TECHNIQUE: Right shoulder images acquired and stored on PACS. Multiplanar imaging to include fat sen sitive sequences such as T1, water sensitive sequences such as FST2/STIR, cartilage sensitive sequenc es such as FSPD/gradient-echo sequences. LIMITATIONS: Motion. FINDINGS: BONE MARROW AND CORTEX: No worrisome bone lesions or marrow replacement. No occult fractur es. JOINT OR BURSAL EFFUSION: Moderate proteinaceous fluid in the anterior subdeltoid bursa. GLENO-HUMERAL ARTICULATION: Intact. Mild-moderate arthropathy. ACROMION AND AC JOINT: Type 2 acromion. Moderate AC joint arthropathy. ROTATOR CUFF AND INTERVAL: Diffuse tendinosis. No significant tear identified. No rotator interval tear. No rotator interval thickening to suggest adhesive capsulitis. LABRUM AND BICEPS LABRAL COMPLEX: Intact. No labral tear. Intra-articular long-head biceps tendon n ormal. Distal biceps in normal location in bicipital groove. REMAINDER OF LABRUM AND IGHL : Intact. PERIARTICULAR AND ADJACENT SOFT TISSUES: No masses or abnormal nodes. OTHER: No other significant finding. IMPRESSION: 1. Mild tendinosis without significant tear. 2. Subdeltoid bursitis. 3. AC and glenohumeral joint arthropathy. TECHNICAL DOCUMENTATION: JOB ID: [id number] 2010 [employer]- All Rights Reserved Reading location - IP/workstation name: [email or web address]
== END ==
LOC: RAD 10:22
PROVIDERS: ATTEND Orthopaedic Surgery
DX: M25.511 Pain in right shoulder (principal)